=== PATIENT | female | born 1955 | race Caucasian/White ===

== ENCOUNTER → 2016-09-27 | Outpatient (CLI) | payer OTHER ==
[~2016-09-27] MED LIST: ADVIN50/60 INH; ADVIN50050 INH; ATRIN INH; CMBIN INH; DOUNEB INH; FLNIN NAE; FLUR100T PO; FLUT0.15 NAE; HYDR-3124 PO; IMIP10TA PO; IPRASOL4 INH; LANS15CA6 PO; LIDO PO; LORA-741 PO; MAALOX PO; MONT1TAB3 PO; NXM/40 PO; ONDA4TAB10 SL; POLY335040 PO; SIMV40TA2 PO; SOLI5TAB2 PO; TRAM-10 PO; URSO300C4 PO; [UNRECOGNIZED DRUG - OTHER] PO
--- NOTE | 2016-09-27 10:04 | DIAGNOSTIC IMAGING REPORT ---
RIGHT ANKLE MIN 3 VIEWS ROUTINE CLINICAL HISTORY: ACUTE RT ANKLE PAIN Right COMPARISON: None. DISCUSSION: The bones and joint spaces appear intact. There is no evidence of fracture, dislocation or bony disease. Small heel spur. IMPRESSION: Small heel spur. Otherwise negative study Electronically signed by: Liam Silva M.D. 09/27/2016 10:02 AM Dictated Date/Time: 09/27/2016 10:01 AM
== END | disposition home or self-care (01) ==
LOC: C.RAD 09:32
PROVIDERS: ATTEND Student in an Organized Health Care Education/Training Program
DX: M25.571 Pain in right ankle and joints of right foot (principal); M77.31 Calcaneal spur, right foot

== ENCOUNTER 2016-11-05 18:14 | Emergency (ER) | payer OTHER ==
[~2016-11-05] VITALS: Ht 154.9 cm; Wt 73.4 kg
[~2016-11-05 18:14] MED LIST changes: -ADVIN50/60 INH; -ATRIN INH; -FLUT0.15 NAE; -IPRASOL4 INH; -LANS15CA6 PO; -MONT1TAB3 PO; -ONDA4TAB10 SL
[2016-11-05 18:40] VITALS: Ht 154.9 cm; Wt 73.4 kg
[2016-11-05] MEDS ORDERED: SODIUM CHLORIDE 0.9% 1000ML 1,000 ML IV STA (19:06)
[2016-11-05] MEDS ORDERED: OPTIRAY 320 IV PRN (19:15)
[2016-11-05 19:18] LABS: BASO % 0.2 %; BASO ABS # 0.04 K/uL (0-0.2); COMPLETE YES; EOS % 0.7 %; HEMATOCRIT 45.2 % (37-47); IG% 0.3 %; LYMPH % 16.4 %; LYMPH ABS # 3.03 K/uL (1.2-3.4); MEAN CELL VOLUME 86.1 fL (80-100); MEAN CORPUSCULAR HEMOGLOBIN 31.2 pg (25-34); MEAN CORPUSCULAR HGB CONC 36.3 g/dl (32-36); MEAN PLATELET VOLUME 10.5 fL (7.4-10.4); MONO % 4.7 %; NEUT % 77.7 %; PLATELET COUNT 238 K/uL (130-400); RED BLOOD COUNT 5.25 M/uL (4.2-5.4); WHITE BLOOD COUNT 18.45 K/uL (4.8-10.8)
--- NOTE | 2016-11-05 19:28 | EMERGENCY ROOM VISIT NOTE ---
History Report prepared by Arun: Bobbi Coyle Under the Supervision of: Dr. Devin Pena M.D. First contact with patient: 18:49 Chief Complaint: FLU LIKE SX Stated Complaint: FLU LIKE History of Present Illness The patient is a 61 year old female who presents to the Emergency Room with complaints of a GI assessment that started yesterday. The patient states that she experienced chills yesterday, but felt well today. She is also experiencing nausea, vomiting, and diarrhea, which started today. The patient experiences bowel incontinence with vomiting. The patient has experienced two episodes of vomiting. She states that she became diaphoretic earlier today and then developed abdominal pain. The patient is also experiencing generalized weakness. The patient states that she has a history of irritable bowel syndrome. She adds that she has a hiatal hernia and an irritated esophagus. Source of History: patient Onset: yesterday Position: other (global) Quality: other (GI assessment) Timing: worsening Associated Symptoms: + abdominal pain, + chills, + diaphoresis, + diarrhea, + nausea, + vomiting Review of Systems See HPI for pertinent positives & negatives. A total of 10 systems reviewed and were otherwise negative. Past Medical & Surgical Medical Problems: (1) Asthma (2) hypertension Surgical Problems: (1) History of cholecystectomy Family History Diabetes mellitus Gallbladder disease Heart disease Hypertension Social History Smoking Status: Current Every Day Smoker Alcohol Use: none Drug Use: none Marital Status: Occupation Status: unemployed, disabled Current/Historical Medications Scheduled Flurbiprofen (Ansaid), 100 MG PO BID Fluticasone Prop/Salmeterol (Advair Diskus 500/50 60 Dose), 1 PUFF INH BID Imipramine Hcl (Tofranil), 10 MG PO HS Ipratropium Convoy (Atrovent Hfa), 2 PUFFS INH QID Ipratropium-Albuterol (Duoneb), 1 TREATMENT INH Q4H Lansoprazole (Prevacid), 15 MG PO DAILY Lorazepam (Ativan), 0.5 MG PO BID PRN Montelukast Sodium (Singulair), 10 MG PO DAILY Ondasetron Odt (Zofran Odt), 4 MG SL Q6H Simvastatin (Zocor), 40 MG PO QPM Ursodiol (Actigall), 300 MG PO BIDM [Maalox/Donnatol/Lido], 45 ML PO UD Scheduled PRN Tramadol (Ultram), 50 MG PO Q4H PRN for Pain Miscellaneous Medications Fluticasone Propionate (Nasal) (Flonase Allergy Relief), 1 SPRAY POLO Allergies Coded Allergies: Hydrocodone (Verified Allergy, Mild, vomiting, 11/05/16) Codeine (Verified Allergy, Unknown, VOMITING, 11/05/16) Physical Exam Vital Signs Date Time Temp Pulse Resp B/P Pulse Ox O2 Delivery O2 Flow Rate FiO2 11/05/16 21:37 36.6 84 13 145/87 92 11/05/16 20:44 84 13 92 11/05/16 20:39 84 20 95 11/05/16 20:34 80 20 94 11/05/16 20:31 145/87 11/05/16 20:29 85 18 93 11/05/16 20:24 84 29 94 11/05/16 20:19 85 26 95 11/05/16 20:14 94 17 97 11/05/16 20:09 85 22 96 11/05/16 20:04 84 15 94 11/05/16 20:01 137/79 11/05/16 19:59 84 13 96 11/05/16 19:57 87 11/05/16 19:40 141/88 11/05/16 19:40 81 18 141/88 96 Room Air 11/05/16 18:40 36.6 100 16 141/88 94 Room Air Physical Exam GENERAL: Patient is a healthy-appearing well-nourished female. HEAD: Normocephalic atraumatic EYES: Ocular movements intact pupils equal and react to light OROPHARYNX mucous membranes are moist no exudates present no erythema or edema present NECK: Supple no nuchal rigidity CHEST: Good equal expansion LUNGS: Clear and equal to auscultation CARDIAC: Normal S1 and S2 ABDOMEN: Soft diffuse tenderness no guarding BACK: No CVA tenderness EXTREMITIES: No pain upon palpation normal muscle strength in all groups no clubbing cyanosis or edema NEURO: Patient is following commands is answering questions appropriately. Alert and oriented x3 Cranial Nerves 2-12 grossly intact Medical Decision & Procedures ER Provider Diagnostic Interpretation: CT results as stated below per my review and radiologist interpretation: CT OF THE ABDOMEN AND PELVIS WITH CONTRAST IMPRESSION: 1. No acute process within the abdomen or pelvis. Normal appendix. 2. Suspected fatty infiltration of the liver. 3. Portions of the colon are fluid-filled which could be seen in the setting of a diarrheal state. No bowel wall thickening. No bowel obstruction. Electronically signed by: Ever Hackett M.D. 11/05/2016 9:08 PM Dictated Date/Time: 11/05/2016 9:02 PM Laboratory Results 11/05/16 19:05 Red Blood Count 5.25, Mean Corpuscular Volume 86.1, Mean Corpuscular Hemoglobin 31.2, Mean Corpuscular Hemoglobin Concent 36.3, Mean Platelet Volume 10.5, Neutrophils (%) (Auto) 77.7, Lymphocytes (%) (Auto) 16.4, Monocytes (%) (Auto) 4.7, Eosinophils (%) (Auto) 0.7, Basophils (%) (Auto) 0.2, Neutrophils # (Auto) 14.35, Lymphocytes # (Auto) 3.03, Monocytes # (Auto) 0.86, Eosinophils # (Auto) 0.12, Basophils # (Auto) 0.04 11/05/16 19:05 Test 11/05/16 19:05 11/05/16 21:30 White Blood Count 18.45 K/uL (4.8-10.8) Red Blood Count 5.25 M/uL (4.2-5.4) Hemoglobin 16.4 g/dL (12.0-16.0) Hematocrit 45.2 % (37-47) Mean Corpuscular Volume 86.1 fL (80-100) Mean Corpuscular Hemoglobin 31.2 pg (25-34) Mean Corpuscular Hemoglobin Concent 36.3 g/dl (32-36) Platelet Count 238 K/uL (130-400) Mean Platelet Volume 10.5 fL (7.4-10.4) Neutrophils (%) (Auto) 77.7 % Lymphocytes (%) (Auto) 16.4 % Monocytes (%) (Auto) 4.7 % Eosinophils (%) (Auto) 0.7 % Basophils (%) (Auto) 0.2 % Neutrophils # (Auto) 14.35 K/uL (1.4-6.5) Lymphocytes # (Auto) 3.03 K/uL (1.2-3.4) Monocytes # (Auto) 0.86 K/uL (0.11-0.59) Eosinophils # (Auto) 0.12 K/uL (0-0.5) Basophils # (Auto) 0.04 K/uL (0-0.2) RDW Standard Deviation 40.5 fL (36.4-46.3) RDW Coefficient of Variation 13.0 % (11.5-14.5) Immature Granulocyte % (Auto) 0.3 % Immature Granulocyte # (Auto) 0.05 K/uL (0.00-0.02) Anion Gap 9.0 mmol/L (3-11) Est Creatinine Clear Calc Drug Dose 60.7 ml/min Estimated GFR () 81.6 Estimated GFR (Non- 70.4 BUN/Creatinine Ratio 18.5 (10-20) Calcium Level 9.7 mg/dl (8.5-10.1) Total Bilirubin 0.5 mg/dl (0.2-1) Direct Bilirubin 0.1 mg/dl (0-0.2) Aspartate Amino Transf (AST/SGOT) 15 U/L (15-37) Alanine Aminotransferase (ALT/SGPT) 21 U/L (12-78) Alkaline Phosphatase 122 U/L (45-117) Total Creatine Kinase 85 U/L (26-192) Creatine Kinase MB 0.7 ng/ml (0.5-3.6) Creatine Kinase MB Ratio 0.8 (0-3.0) Troponin I < 0.015 ng/ml (0-0.045) Total Protein 8.1 gm/dl (6.4-8.2) Albumin 3.9 gm/dl (3.4-5.0) Lipase 222 U/L (73-393) Urine Color ORANGE Urine Appearance TURBID (CLEAR) Urine pH 5.0 (4.5-7.5) Urine Specific [place] 1.031 (1.000-1.030) Urine Protein NEG (NEG) Urine Glucose (UA) NEG (NEG) Urine Ketones NEG (NEG) Urine Occult Blood NEG (NEG) Urine Nitrite POS (NEG) Urine Bilirubin 1+ (NEG) Urine Urobilinogen NEG (NEG) Urine Leukocyte Esterase NEG (NEG) Urine WBC (Auto) 1-5 /hpf (0-5) Urine RBC (Auto) 5-10 /hpf (0-4) Urine Hyaline Casts (Auto) 5-10 /lpf (0-5) Urine Epithelial Cells (Auto) >30 /lpf (0-5) Urine Bacteria (Auto) NEG (NEG) Date/Time Source Procedure Growth Status 11/05/16 21:30 Stool C.difficile Toxin B Gene (PCR) - Final No C. difficile toxin B gene detected Complete Labs reviewed by ED physician. Medications Administered Medications (Trade) Dose Ordered Sig/Bakari Route Start Time Stop Time Status Last Admin Dose Admin Sodium Chloride (Nss 1000ml) 1,000 ml @ 999 mls/hr Q1H1M STAT IV 11/05/16 19:06 11/05/16 20:06 DC 11/05/16 19:38 999 MLS/HR ECG Indication: abdominal pain Rate (beats per minute): 83 Rhythm: normal sinus Findings: no acute ischemic change, no ectopy ED Course 1851: Past medical records reviewed. The patient was evaluated in room C2. A complete history and physical examination was performed. 1905: Ordered Sodium Chloride 1000 ml @ 999 mls/hr IV 2114: Upon reexamination the patient is doing well. I discussed results and treatment plan with the patient. She verbalizes agreement and understanding. The patient is ready for discharge. Ordered Ondansetron HCl 1 homepack Medical Decision Differential diagnosis: Etiologies such as appendicitis, diverticulitis, PUD, biliary pathology, UTI, pancreatitis, obstruction, mesenteric ischemia, aortic pathology, infections, inflammatory bowel disease, renal colic, as well as others were entertained. This is a 61-year-old female who presents emergency department complaining of nausea vomiting diarrhea. Serial abdominal examinations were performed on the patient in the emergency department and no tended she exhibit a surgical abdomen. The patient was given normal saline bolus with much improvement in her symptoms. She was able provide a stool sample this was sent for culture. I do believe the patient as well as she can be safely discharged home. Patient was given Zofran for home and will be called and culture results. Patient was in agreement with the treatment plan. Impression Primary Impression: Gastroenteritis Scribe Attestation The scribe's documentation has been prepared under my direction and personally reviewed by me in its entirety. I confirm that the note above accurately reflects all work, treatment, procedures, and medical decision making performed by me. Departure Information Dispostion Home / Self-Care Prescriptions Ondasetron Odt (ZOFRAN ODT) 4 Mg Tab 4 MG SL Q6H for Nausea, #6 TAB Prov: Devin Pena MD 11/05/16 Referrals Smitha Ocasio D.O. (PCP) Forms HOME CARE DOCUMENTATION FORM, IMPORTANT VISIT INFORMATION Patient Instructions ED Diet Vomiting Diarrhea, ED Gastroenteritis Report Pend, My [facility] Additional Instructions You received narcotic or benzodiazepene medication while in the emergency room today. Do not drive, operate heavy machinery, or drink alcohol under the influence of this medication. Take 600 mg Ibuprofen every 6 hours Culture results are usually available in approx 48 hours You have been examined and treated today on an emergency basis only. This is not a substitute for, or an effort to provide, complete comprehensive medical care. It is impossible to recognize and treat all injuries or illnesses in a single emergency department visit. It is therefore important that you follow up closely with Dr Ocasio. Call as soon as possible for an appointment. Thank you for your time and consideration. I look forward to speaking with you again soon. Please don't hesitate to call us if you have any questions.
[2016-11-05 19:36] LABS: ALT/SGPT 21 U/L (12-78); BLOOD UREA NITROGEN 16 mg/dl (7-18); BUN/CREATININE RATIO 18.5 (10-20); CALCIUM 9.7 mg/dl (8.5-10.1); CARBON DIOXIDE 29 mmol/L (21-32); CHLORIDE 103 mmol/L (98-107); CREATININE 0.88 mg/dl (0.60-1.20); GLUCOSE 97 mg/dl (70-99); POTASSIUM 3.7 mmol/L (3.5-5.1); SODIUM 141 mmol/L (136-145)
[2016-11-05 19:41] LABS: ALKALINE PHOSPHATASE 122 U/L (45-117); AST/SGOT 15 U/L (15-37); CKMB/CK RATIO 0.8 (0-3.0)
[2016-11-05] MEDS ORDERED: ATRIN INH (20:20)
[2016-11-05] MEDS ORDERED: IPRASOL4 INH (20:20)
[2016-11-05] MEDS ORDERED: ADVIN50/60 INH (20:20)
[2016-11-05] MEDS ORDERED: LANS15CA6 PO (20:20)
[2016-11-05] MEDS ORDERED: MONT1TAB3 PO (20:20)
[2016-11-05] MEDS ORDERED: FLUT0.15 NAE (20:20)
--- NOTE | 2016-11-05 21:09 | DIAGNOSTIC IMAGING REPORT ---
CT OF THE ABDOMEN AND PELVIS WITH CONTRAST CLINICAL HISTORY: Diffuse abdominal pain. COMPARISON STUDY: Right upper quadrant ultrasound August 29, 2012. TECHNIQUE: Following IV administration of 92 mL of Optiray-320, axial images of the abdomen and pelvis were obtained from the lung bases to the proximal femurs. Images were reviewed in the axial, sagittal, and coronal planes. IV contrast was administered without complication. CT DOSE: 452.34 mGy.cm FINDINGS: There is no biliary ductal dilatation status post cholecystectomy. There is suspected fatty infiltration of the liver. The adrenal glands, spleen, kidneys and pancreas are normal. There is no peripancreatic infiltration. No pneumatosis, free air or portal venous gas is present. There is no hydronephrosis. The caliber and wall thickness of small and large bowel are normal. The colon is fluid-filled. The appendix is normal. There is no lymphadenopathy. There are no suspicious skeletal lesions. IMPRESSION: 1. No acute process within the abdomen or pelvis. Normal appendix. 2. Suspected fatty infiltration of the liver. 3. Portions of the colon are fluid-filled which could be seen in the setting of a diarrheal state. No bowel wall thickening. No bowel obstruction. Electronically signed by: Ever Hackett M.D. 11/05/2016 9:08 PM Dictated Date/Time: 11/05/2016 9:02 PM
[2016-11-05] MEDS ORDERED: ONDANSETRON HOME PACK 4MG OD TAB PO ONE (21:15)
[2016-11-05] MEDS ORDERED: ONDA4TAB10 SL (21:18)
[2016-11-05 21:37] VITALS: BP 145/87; PULSE 84; TEMP 36.6; O2SAT 92
[2016-11-05 21:49] LABS: URINE APPEARANCE TURBID (CLEAR); URINE COLOR ORANGE; URINE EPITHELIAL CELL AUTO >30 /lpf (0-5); URINE NITRITE POS (NEG); URINE SPECIFIC GRAVITY 1.031 (1.000-1.030); UROBILINOGEN NEG (NEG)
[2016-11-05 21:51] LABS: MANUAL MICROSCOPIC REQUIRED? NO; REVIEW REQ? NO; SULFASALICYLIC ACID NEG (NEG); URINE BILIRUBIN 1+ (NEG)
== END 2016-11-05 21:38 | disposition home or self-care (01) ==
LOC: C.EDB 18:14 → C.EDC 21:38
DX: K52.9 Noninfective gastroenteritis and colitis, unspecified (principal); J45.909 Unspecified asthma, uncomplicated; I10 Essential (primary) hypertension; Z90.49 Acquired absence of other specified parts of digestive tract; Z83.3 Family history of diabetes mellitus; Z82.49 Family history of ischemic heart disease and other diseases of the circulatory system; F17.210 Nicotine dependence, cigarettes, uncomplicated; Z79.899 Other long term (current) drug therapy

== ENCOUNTER → 2017-06-04 | Outpatient (CLI) | payer OTHER ==
[~2017-06-04] MED LIST changes: +ADVIN50/60 INH; -ADVIN50050 INH; +ATRIN INH; -CMBIN INH; -DOUNEB INH; -FLNIN NAE; +FLUT0.15 NAE; -HYDR-3124 PO; +IPRASOL4 INH; +LANS15CA6 PO; +MONT1TAB3 PO; -NXM/40 PO; -POLY335040 PO; -SOLI5TAB2 PO
--- NOTE | 2017-06-04 08:52 | DIAGNOSTIC IMAGING REPORT ---
(CHEST) THORAX WITHOUT CLINICAL HISTORY: 61 years-old Female presenting with J44.9 Chronic obstructive pulmonary [id number] Pulmonary nodule. TECHNIQUE: Multidetector CT imaging of the chest was performed without the use of intravenous contrast. IV contrast: None. A dose lowering technique was used consistent with the principles of ALARA (as low as reasonably achievable). COMPARISON: 05/21/2016. CT DOSE (mGy.cm): The estimated cumulative dose is 316.81 mGycm. FINDINGS: Marine Extension Agent topogram: Unremarkable. On soft tissue windows, normal thyroid and thoracic inlet. No axillary, supraclavicular, hilar, or mediastinal lymphadenopathy. Atherosclerosis of the aorta. Coronary artery calcification at the origin of the right main coronary artery. Normal heart size. No pericardial or pleural effusion. Cholecystectomy clips noted. On lung windows, multiple tiny groundglass nodules noted in the upper lobes and superior segments of the lower lobes in a similar distribution as on prior exam. No new pulmonary nodule. No other focal infiltrate. Airways patent. On bone windows, normal osseous structures. IMPRESSION: 1. Stable tiny upper lobe predominant groundglass nodules. This appearance is most characteristic of respiratory bronchiolitis/smoking related lung injury in the appropriate clinical setting. No new pulmonary nodule. Electronically signed by: Jose Angel Queen M.D. 06/04/2017 8:50 AM Dictated Date/Time: 06/04/2017 8:46 AM
== END | disposition home or self-care (01) ==
LOC: C.CTS 08:37
PROVIDERS: ATTEND Internal Medicine Critical Care Medicine
DX: J44.9 Chronic obstructive pulmonary disease, unspecified (principal); R91.8 Other nonspecific abnormal finding of lung field; Z72.0 Tobacco use

== ENCOUNTER 2020-05-13 13:27 | Inpatient (IN) ==
--- NOTE | 2020-05-13 13:52 | Emergency Department Note ---
ED Visit Note I have seen and examined this patient with Belinda Girard and generally agree with the treatment plan as discussed. .
[2020-05-13] MEDS ORDERED: SODIUM CHLORIDE 0.9% 1000ML 1,000 ML IV ONE (13:54)
[2020-05-13] MEDS ORDERED: TRAMADOL HCL 50 MG TABLET PO STA (13:55)
[2020-05-13] MEDS ORDERED: ONDANSETRON INJ 2 MG/ML 2 ML VIAL IV STA (13:55)
--- NOTE | 2020-05-13 14:19 | Emergency Department Note ---
History of Present Illness General Chief complaint: Skin Problem Stated complaint: ABSCESS IN GROIN AREA,PAIN MUCH WORSE TODAY Time Seen by Provider: 05/13/20 13:37 History of Present Illness Maximum Pain Intensity: 10 This patient is a 64-year-old female who presents emergency department complaining of increased redness, swelling and pain in the groin area that has gotten progressively worse over the last 5 days. The pain is worse with walking. She has tried Tylenol with minimal relief. The patient saw her beverage host yesterday. The area was lanced. Tetanus shot is up-to-date. She denies any fever. No chills. No urinary symptoms. Home Medications Home Medications Medication Instructions Recorded Confirmed Type atorvastatin 40 mg PO QAM 07/23/18 05/13/20 History diclofenac sodium 75 mg PO BIDM 07/23/18 05/13/20 History montelukast 10 mg PO QAM 07/23/18 05/13/20 History pantoprazole [Protonix] 40 mg PO QAM 07/23/18 05/13/20 History fluticasone furoate-vilanterol 1 inh INHALATION QAM 03/29/19 05/13/20 History [Breo Ellipta] albuterol sulfate [Ventolin HFA] 2 inh INHALATION Q4H PRN 05/13/20 05/13/20 History cetirizine 5 mg PO HS 05/13/20 05/13/20 History escitalopram oxalate [Lexapro] 10 mg PO QAM 05/13/20 05/13/20 History famotidine [Pepcid] 20 mg PO HS PRN 05/13/20 05/13/20 History fluticasone furoate [Arnuity 1 inh INHALATION HS 05/13/20 05/13/20 History Ellipta] fluticasone propionate [Flonase 2 spray INTRANASAL BID 05/13/20 05/13/20 History Allergy Relief] guaifenesin [Mucinex] 1,200 mg PO BID PRN 05/13/20 05/13/20 History hydrocortisone [Proctosol HC] 1 applic [place] BID PRN 05/13/20 05/13/20 History ipratropium-albuterol 3 ml INHALATION Q4H PRN 05/13/20 05/13/20 History mirabegron [Myrbetriq] 50 mg PO QAM 05/13/20 05/13/20 History sulfamethoxazole-trimethoprim 1 tab PO BID 05/13/20 05/13/20 History [Bactrim DS] umeclidinium [Incruse Ellipta] 1 inh INHALATION QAM 05/13/20 05/13/20 History Allergies Allergy/AdvReac Type Severity Reaction Status Date / Time codeine AdvReac Severe VOMITING Verified 05/13/20 16:23 doxycycline AdvReac Severe Nausea & Verified 05/13/20 16:23 vomiting morphine AdvReac Severe Vomiting Verified 05/13/20 16:23 dicyclomine AdvReac Intermediate N/V Verified 05/13/20 16:23 hydrocodone AdvReac Mild vomiting Verified 05/13/20 16:23 nitrofurantoin AdvReac Unknown Vomiting Verified 05/13/20 16:23 [From Macrobid] Past Med/Surg History Medical History Asthma Chronic back pain Chronic obstructive pulmonary disease Degenerative disc disease GERD (gastroesophageal reflux disease) Hiatal hernia History of corrected cleft lip and palate Hyperlipidemia Osteoarthritis Surgical History H/O tympanomastoidectomy RIGHT EAR History of carpal tunnel release RIGHT History of cataract extraction with lens replacement RIGHT EYE, JUL 2018 History of colonoscopy History of ear surgery RIGHT -- MULTIPLE SURGERIES History of hysterectomy RINKU WITH BSO Social History Smoking Status: Current every day smoker Cigarettes Per Day: 11 PER DAY; Second Hand Exposure: Yes; Do You Dip or Chew Tobacco: No; Tobacco Cessation Education Requested by Patient: No Hx Alcohol Use: No Hx Substance Use: No Preferred Language: Tamazight Communication Ability: Effective Quantitative Strategy Analyst Required: No Beliefs That Will Affect Care: None Current Living Situation: Family Other Information That Helps Us Care for You: No Feels Safe at Home: Yes Safety Concerns: Feels Safe At This Time Review of Systems A total of 10 systems reviewed and were otherwise negative Physical Exam Vital Signs Vital Signs - 24 hr 05/13/20 13:30 05/13/20 14:25 Temperature 36.7 C Temperature Source Oral Pulse Rate 87 Pulse Rate [Finger] 91 H Respiratory Rate 20 20 Respiratory Effort / Characteristics Non-Labored Spontaneous Non-Labored Spontaneous Respiratory Depth Normal Normal Respiratory Pattern Regular Blood Pressure 127/79 Blood Pressure [Right Arm] 162/80 H Blood Pressure Mean 95 Blood Pressure Mean [Right Arm] 107 Pulse Oximetry 96 95 Oxygen Delivery Method Room Air Room Air Sepsis Recent Fever Within 48 Hours No Sepsis New/Unexplained Change in Mental Status N/A Sepsis Action Taken by Nursing No Action Required Constitutional WD/WN, vitals as above Eyes EOM intact bilaterally ENMT external ear and nose normal, oropharynx normal Neck trachea midline Respiratory normal respiratory effort, lungs clear to auscultation Cardiovascular RRR, no murmur, no edema Gastrointestinal (Abdomen) normal bowel sounds, soft, nontender, no hepatosplenomegaly Musculoskeletal no cyanosis or clubbing, extremities motor strength 5/5 Skin no rashes, warm and dry Neurologic Alert and oriented x3. No focal motor deficits. Psychiatric Acting appropriately Genitourinary Significant erythema and indurated area noted to the right labia majora. Course Course Patient was seen and examined Vital signs including blood pressure were reviewed medications list was verified with patient Labs were obtained, and a saline lock was established Medications were ordered. Case was discussed with gynecology who kindly agreed to evaluate the patient for likely inpatient management The patient was reevaluated. We discussed the results. She voiced understanding, and was comfortable with disposition. She remained stable in the emergency department. Consultations Consultation #1: Dr. Rodriguez Administered Medications Acetaminophen (Acetaminophen 325 Mg Tab) 650 mg PO Q4H PRN PRN Reason: Pain or Fever Stop: 06/12/20 16:30 Last Admin: 05/13/20 18:25 Dose: 650 mg Documented by: [id number] Cetirizine HCl (Cetirizine Hcl 10 Mg Tablet) 5 mg PO HS EILEEN Stop: 06/12/20 20:59 Last Admin: 05/13/20 20:20 Dose: 5 mg Documented by: [id number] Diclofenac Sodium (Diclofenac Sodium 75 Mg Tabcr) 75 mg PO BIDM EILEEN Stop: 06/12/20 18:08 Last Admin: 05/13/20 20:20 Dose: 75 mg Documented by: [id number] Fluticasone Furoate (Fluticasone Furoate 100mcg 14 Puffs/Inhaler) 1 puffs INH HS EILEEN Stop: 06/12/20 20:59 Last Admin: 05/13/20 20:19 Dose: 1 puffs Documented by: [id number] Fluticasone Propionate (Fluticasone Propionate Na Spr 16 Gm Btl) 2 sprays NA BID EILEEN Stop: 06/12/20 20:59 Last Admin: 05/13/20 20:19 Dose: 2 sprays Documented by: [id number] Discontinued Medications Sodium Chloride (Nss 1000ml) 1,000 mls @ 999 mls/hr IV .Q1H1M ONE Stop: 05/13/20 14:54 Last Infusion: 05/13/20 16:00 Dose: 0 mls/hr Documented by: [id number] Admin: 05/13/20 14:37 Dose: 999 mls/hr Documented by: [id number] Vancomycin HCl 1,500 mg/ (Sodium Chloride) 530 mls @ 200 mls/hr IV NOW ONE Stop: 05/13/20 19:08 Last Admin: 05/13/20 17:00 Dose: 200 mls/hr Documented by: [id number] Metronidazole (Flagyl) 500 mg in 100 mls @ 100 mls/hr IV ONE ONE Stop: 05/13/20 18:14 Last Admin: 05/13/20 20:17 Dose: 100 mls/hr Documented by: [id number] Ceftriaxone Sodium (Rocephin) 2,000 mg in 70 mls @ 140 mls/hr IV NOW ONE; Pro tocol Stop: 05/13/20 20:14 Last Admin: 05/13/20 20:17 Dose: 140 mls/hr Documented by: [id number] Ioversol (Ioversol 100ml) 94 ml IV ONCE ONE Stop: 05/13/20 15:28 Last Admin: 05/13/20 15:27 Dose: 94 ml Documented by: [id number] Ondansetron HCl (Ondansetron Inj 2 Mg/Ml 2 Ml Vial) 4 mg IV NOW STA Stop: 05/13/20 13:56 Last Admin: 05/13/20 14:37 Dose: 4 mg Documented by: [id number] Tramadol HCl (Tramadol Hcl 50 Mg Tablet) 50 mg PO NOW STA Stop: 05/13/20 13:56 Last Admin: 05/13/20 14:37 Dose: 50 mg Documented by: [id number] Medical Decision Making Medical Records Attestation: I reviewed the patient's medical records. Home Medications Current Medication List: was personally reviewed by me Laboratory Data Attestation: I reviewed the patient's lab results. Result diagrams: 05/13/20 14:33 05/13/20 14:33 Lab Results 05/13/20 05/13/20 05/13/20 Range/Units 14:30 14:33 14:33 WBC 16.91 H (4.8-10.8) K/uL RBC 4.60 (4.2-5.4) M/uL Hgb 14.1 (12.0-16.0) g/dL Hct 40.3 (37-47) % MCV 87.6 (80-100) fL MCH 30.7 (25-34) pg MCHC 35.0 (32-36) g/dL RDW Std Deviation 40.6 (36.4-46.3) fL RDW Coeff of Raheem 12.6 (11.5-14.5) % Plt Count 187 (130-400) K/uL MPV 10.9 H (7.4-10.4) fL Immature Gran % (Auto) 0.2 % Neut % (Auto) 81.6 % Lymph % (Auto) 10.8 % [place] % (Auto) 7.0 % Eos % (Auto) 0.3 % Baso % (Auto) 0.1 % Neut # (Auto) 13.81 H (1.4-6.5) K/uL Lymph # (Auto) 1.82 (1.2-3.4) K/uL Independence # (Auto) 1.18 H (0.11-0.59) K/uL Eos # (Auto) 0.05 (0-0.5) K/uL Baso # (Auto) 0.01 (0-0.2) K/uL Immature Gran # (Auto) 0.04 H (0.00-0.02) K/uL PT (9.0-12.0) Seconds INR (0.9-1.1) Sodium (136-145) mmol/L Potassium (3.5-5.1) mmol/L Chloride (98-107) mmol/L Carbon Dioxide (21-32) mmol/L Anion Gap (3-11) BUN (7-18) mg/dl Creatinine (0.6-1.2) mg/dl Est Cr Clr Drug Dosing Est GFR ( Amer) Est GFR (Non-Af Amer) BUN/Creatinine Ratio (10-20) Glucose (70-99) mg/dl Lactate 1.1 (0.4-2.0) mmol/L Calcium (8.5-10.1) mg/dl Total Bilirubin (0.2-1) mg/dl AST (15-37) U/L ALT (12-78) U/L Alkaline Phosphatase (45-117) U/L Total Protein (6.4-8.2) gm/dl Albumin (3.4-5.0) gm/dl Globulin (2.5-4.0) gm/dl Albumin/Globulin Ratio (0.9-2) Urine Color Dark Yellow Urine Appearance Clear (Clear) Urine pH 5.5 (4.5-7.5) Ur Specific [place] 1.022 (1.000-1.030) Urine Protein Negative (Negative) Urine Glucose (UA) Negative (Negative) Urine Ketones Negative (Negative) Urine Blood Negative (Negative) Urine Nitrite Negative (Negative) Urine Bilirubin Negative (Negative) Urine Urobilinogen Negative (Negative) Ur Leukocyte Esterase Trace H (Negative) Urine WBC (Auto) 1-5 (0-5) /hpf Urine RBC (Auto) 0-4 (0-4) /hpf U Hyaline Cast (Auto) 1-5 (0-5) /lpf U Epithel Cells (Auto) >30 H (0-5) /lpf Urine Bacteria (Auto) Negative (Negative) 05/13/20 05/13/20 Range/Units 14:33 14:33 WBC (4.8-10.8) K/uL RBC (4.2-5.4) M/uL Hgb (12.0-16.0) g/dL Hct (37-47) % MCV (80-100) fL MCH (25-34) pg MCHC (32-36) g/dL RDW Std Deviation (36.4-46.3) fL RDW Coeff of Raheem (11.5-14.5) % Plt Count (130-400) K/uL MPV (7.4-10.4) fL Immature Gran % (Auto) % Neut % (Auto) % Lymph % (Auto) % Independence % (Auto) % Eos % (Auto) % Baso % (Auto) % Neut # (Auto) (1.4-6.5) K/uL Lymph # (Auto) (1.2-3.4) K/uL Independence # (Auto) (0.11-0.59) K/uL Eos # (Auto) (0-0.5) K/uL Baso # (Auto) (0-0.2) K/uL Immature Gran # (Auto) (0.00-0.02) K/uL PT 11.5 (9.0-12.0) Seconds INR 1.1 (0.9-1.1) Sodium 138 (136-145) mmol/L Potassium 3.3 L (3.5-5.1) mmol/L Chloride 103 (98-107) mmol/L Carbon Dioxide 27 (21-32) mmol/L Anion Gap 8.0 (3-11) BUN 17 (7-18) mg/dl Creatinine 1.09 (0.6-1.2) mg/dl Est Cr Clr Drug Dosing Not Reportable Est GFR ( Amer) 61.7 Est GFR (Non-Af Amer) 53.2 BUN/Creatinine Ratio 15.2 (10-20) Glucose 100 H (70-99) mg/dl Lactate (0.4-2.0) mmol/L Calcium 9.9 (8.5-10.1) mg/dl Total Bilirubin 1.7 H (0.2-1) mg/dl AST 9 L (15-37) U/L ALT 16 (12-78) U/L Alkaline Phosphatase 125 H (45-117) U/L Total Protein 7.7 (6.4-8.2) gm/dl Albumin 3.3 L (3.4-5.0) gm/dl Globulin 4.4 H (2.5-4.0) gm/dl Albumin/Globulin Ratio 0.7 L (0.9-2) Urine Color Urine Appearance (Clear) Urine pH (4.5-7.5) Ur Specific [place] (1.000-1.030) Urine Protein (Negative) Urine Glucose (UA) (Negative) Urine Ketones (Negative) Urine Blood (Negative) Urine Nitrite (Negative) Urine Bilirubin (Negative) Urine Urobilinogen (Negative) Ur Leukocyte Esterase (Negative) Urine WBC (Auto) (0-5) /hpf Urine RBC (Auto) (0-4) /hpf U Hyaline Cast (Auto) (0-5) /lpf U Epithel Cells (Auto) (0-5) /lpf Urine Bacteria (Auto) (Negative) Imaging Data Attestation: I personally reviewed and interpreted this imaging study as follows: Radiologist's Impression: CT abdomen and pelvis with IV contrast only IMPRESSION: 1. Moderate anterior right labial inflammation extending into the right groin, partially imaged on this exam. No fluid collection to suggest abscess. This suggests cellulitis. No soft tissue gas. 2. Mild asymmetric right inguinal and external iliac adenopathy which is reactive. 3. 1 cm hypodense left renal lesion which is too small to characterize. Nonemergent renal ultrasound is recommended. ACT 112: Negative or not required by law. Electronically signed by: Ever Hackett M.D. 05/13/2020 3:45 PM Dictated: 05/13/20 1536 Transcribed: 05/13/20 1540 [facility] Narrative Differential diagnosis: Cellulitis, abscess, Denys's gangrene, intra-abdomi nal abscess, among others This patient is a 64-year-old female who presents emergency department with increased redness, swelling and pain in the right labial area. On exam, she was nontoxic in appearance. She does however have a significant cellulitis. I cannot palpate a drainable abscess. A work-up was performed. The patient's blood work is significant for leukocytosis of 16,000. A CT was performed. No drainable abscess was noted. No signs of Denys's gangrene. It is consistent with cellulitis. Given the extent of her symptoms, gynecology was consulted. They kindly agreed to evaluate the patient, and will likely admit her for IV antibiotics. The patient was agreeable with this plan. Impression & Plan Cellulitis of labia Discharge Plan Visit Data Chief Complaint: Skin Problem Stated Complaint: ABSCESS IN GROIN AREA,PAIN MUCH WORSE TODAY ED Provider: Devin Pena ED Midlevel Provider: Belinda Girard Discharge Problem: Cellulitis of labia Patient Disposition: Admitted As Inpatient Condition: Good Discharge Instructions Interventions: ED Discharge Assessment Last Done: 05/13/20 17:15
[2020-05-13 14:49] LABS: Basophils # (auto) 0.01 K/uL (0-0.2); Basophils % (auto) 0.1 %; Eosinophils # (auto) 0.05 K/uL (0-0.5); Eosinophils % (auto) 0.3 %; Hematocrit (blood only) 40.3 % (37-47); Hemoglobin 14.1 g/dL (12.0-16.0); Immature Granulocytes # (auto) 0.04 K/uL (0.00-0.02); Immature Granulocytes % (auto) 0.2 %; Lymphocytes # (auto) 1.82 K/uL (1.2-3.4); Lymphocytes % (auto) 10.8 %; Mean Corpuscular Hemoglobin 30.7 pg (25-34); Mean Corpuscular Volume 87.6 fL (80-100); Mean Platelet Volume 10.9 fL (7.4-10.4); Monocytes # (auto) 1.18 K/uL (0.11-0.59); Neutrophils # (auto) 13.81 K/uL (1.4-6.5); Neutrophils % (auto) 81.6 %; Platelet Count 187 K/uL (130-400); RDW Coefficient of Variation 12.6 % (11.5-14.5); RDW Standard Deviation 40.6 fL (36.4-46.3); White Blood Count 16.91 K/uL (4.8-10.8)
[2020-05-13 14:57] LABS: INR 1.1 (0.9-1.1); Prothrombin Time 11.5 Seconds (9.0-12.0)
[2020-05-13 14:57] LABS: Appearance Urine Clear (Clear); Bacteria Urine Automated Negative (Negative); Blood Urine Negative (Negative); Color Urine Dark Yellow; Epithelial Cell Urine Auto >30 /lpf (0-5); Glucose Urine UA Negative (Negative); Ketones Urine Negative (Negative); Leukocyte Esterase Urine Trace (Negative); Nitrite Urine Negative (Negative); Protein Urine Negative (Negative); RBC Urine Automated 0-4 /hpf (0-4); Specific Gravity Urine 1.022 (1.000-1.030); Urobilinogen Urine Negative (Negative); pH Urine 5.5 (4.5-7.5)
[2020-05-13 15:09] LABS: Bilirubin Urine Negative (Negative); Ictotest Urine Negative (Negative)
[2020-05-13 15:10] LABS: Alanine Aminotransferase 16 U/L (12-78); Albumin Level 3.3 gm/dl (3.4-5.0); Aspartate Aminotransferase 9 U/L (15-37); BUN Creatinine Ratio 15.2 (10-20); Blood Urea Nitrogen 17 mg/dl (7-18); Calcium 9.9 mg/dl (8.5-10.1); Carbon Dioxide 27 mmol/L (21-32); Chloride 103 mmol/L (98-107); Est GFR (African American) 61.7; Est GFR (Non-African American) 53.2; Glucose 100 mg/dl (70-99); Potassium 3.3 mmol/L (3.5-5.1); Sodium 138 mmol/L (136-145)
[2020-05-13 15:13] LABS: Albumin Globulin Ratio 0.7 (0.9-2); Alkaline Phosphatase 125 U/L (45-117); Bilirubin,Total 1.7 mg/dl (0.2-1); Globulin 4.4 gm/dl (2.5-4.0); Total Protein 7.7 gm/dl (6.4-8.2)
[2020-05-13] MEDS ORDERED: IOVERSOL 100ml IV ONE (15:27)
--- NOTE | 2020-05-13 15:46 | CT Scan Report ---
CT OF THE ABDOMEN AND PELVIS WITH CONTRAST CLINICAL HISTORY: Labial abscess. COMPARISON STUDY: CT of the abdomen and pelvis November 05, 2016. Pelvic ultrasound September 16, 2018. TECHNIQUE: Following IV administration of 94 mL of Optiray-320, axial images of the abdomen and pelvi s were obtained from the lung bases to the proximal femurs. Images were reviewed in the axial, sagitt al, and coronal planes. IV contrast was administered without complication. Automated exposure contro l was utilized for the study. A dose lowering technique was utilized adhering to the principles of A DORON. CT DOSE: 498.35 mGy.cm FINDINGS: Lung bases are unremarkable. No pneumatosis, free air or portal venous gas is present. Slig ht dilatation of the common bile duct is likely related to previous cholecystectomy. The spleen, adre nal glands and pancreas are unremarkable. There is a probable 2 mm nonobstructing left renal calculus . There are no ureteral calculi. No hydronephrosis. Note is made of a 1 cm lesion within the midpole of the left kidney on axial image 178 of 421. This is too small to characterize. There is no evidence for a bowel obstruction. The appendix is normal. Note is made of moderate anterior right labial infl ammation extending into the right groin. This is partially imaged on this exam and no fluid collectio n is noted. No soft tissue gas is noted. Mild asymmetric right inguinal and iliac adenopathy is likel y reactive. Index right external iliac node on image 353 measures 1.5 x 1.2 cm. IMPRESSION: 1. Moderate anterior right labial inflammation extending into the right groin, partially imaged on th is exam. No fluid collection to suggest abscess. This suggests cellulitis. No soft tissue gas. 2. Mild asymmetric right inguinal and external iliac adenopathy which is reactive. 3. 1 cm hypodense left renal lesion which is too small to characterize. Nonemergent renal ultrasound is recommended. ACT 112: Negative or not required by law. Electronically signed by: Ever Hackett M.D. 05/13/2020 3:45 PM
[2020-05-13] MEDS ORDERED: VANCOMYCIN HCL 1,500 MG in SODIUM CHLORIDE 0.9% 500 ML IV ONE (16:30)
[2020-05-13] MEDS ORDERED: POLYETHYLENE (MIRALAX) 17 GM PACK PO PRN (16:31)
[2020-05-13] MEDS ORDERED: ALUMINUM/MAGNESIUM/SIMETH (MAALOX MAX) 30 ML UDC PO PRN (16:31)
[2020-05-13] MEDS ORDERED: ONDANSETRON INJ 2 MG/ML 2 ML VIAL IV PRN (16:31)
[2020-05-13] MEDS ORDERED: SULFA IV SCH ×2 (16:35→17:00)
[2020-05-13] MEDS ORDERED: DILUENT IV SCH (16:35)
[2020-05-13] MEDS ORDERED: TRIMETH IV SCH ×2 (16:35→17:00)
--- NOTE | 2020-05-13 16:42 | OB/GYN Consultation ---
Date of Consultation May 13, 2020 Assessment & Plan (1) Abscess, vulva: (2) Vulvar cellulitis: 64 yo postmenopausal female with vulvar cellulitis, no s/s of abscess per CT scan, got worse since yesterday, unable to tolerate PO AB VSS Afebrile Plan to admit, monitor, IV AB, Vanco and Bactrim for 48 hours She agrees History of Present Illness Reason for Consultation: Vulvar abcsess History of Present Illness Patient is a 64 yo postmenopausal female who started to have vulvar swelling and pain for bout 5 days ago, got worse over days and came to see her PCP yesterday in office Then she was sent up to my office from her PCP I saw here yesterday am and found to have vulvar edema/ redness/ induration c/x vulvar cellulitis vs abscess Tried I&D but unable to tolerate and did not drain much C were collected US was arranged same day but she could not stay and went home She took 1 dose of Bactrim and had N&V and unable to continue It got bigger and worse today and recommended to come to ER She is now with her daughter who is a OWNER/PHOTOGRAPHER CT scan showed here: 1. Moderate anterior right labial inflammation extending into the right groin, partially imaged on this exam. No fluid collection to suggest abscess. This suggests cellulitis. No soft tissue gas. 2. Mild asymmetric right inguinal and external iliac adenopathy which is reactive Allergies Allergy/AdvReac Type Severity Reaction Status Date / Time codeine AdvReac Severe VOMITING Verified 05/13/20 16:23 doxycycline AdvReac Severe Nausea & Verified 05/13/20 16:23 vomiting morphine AdvReac Severe Vomiting Verified 05/13/20 16:23 dicyclomine AdvReac Intermediate N/V Verified 05/13/20 16:23 hydrocodone AdvReac Mild vomiting Verified 05/13/20 16:23 nitrofurantoin AdvReac Unknown Vomiting Verified 05/13/20 16:23 [From Macrobid] Home Medications Home Medications Medication Instructions Recorded Confirmed Type atorvastatin 40 mg PO QAM 07/23/18 05/13/20 History diclofenac sodium 75 mg PO BIDM 07/23/18 05/13/20 History montelukast 10 mg PO QAM 07/23/18 05/13/20 History pantoprazole [Protonix] 40 mg PO QAM 07/23/18 05/13/20 History fluticasone furoate-vilanterol 1 inh INHALATION QAM 03/29/19 05/13/20 History [Breo Ellipta] albuterol sulfate [Ventolin HFA] 2 inh INHALATION Q4H PRN 05/13/20 05/13/20 History cetirizine 5 mg PO HS 05/13/20 05/13/20 History escitalopram oxalate [Lexapro] 10 mg PO QAM 05/13/20 05/13/20 History famotidine [Pepcid] 20 mg PO HS PRN 05/13/20 05/13/20 History fluticasone furoate [Arnuity 1 inh INHALATION HS 05/13/20 05/13/20 History Ellipta] fluticasone propionate [Flonase 2 spray INTRANASAL BID 05/13/20 05/13/20 History Allergy Relief] guaifenesin [Mucinex] 1,200 mg PO BID PRN 05/13/20 05/13/20 History hydrocortisone [Proctosol HC] 1 applic [place] BID PRN 05/13/20 05/13/20 History ipratropium-albuterol 3 ml INHALATION Q4H PRN 05/13/20 05/13/20 History mirabegron [Myrbetriq] 50 mg PO QAM 05/13/20 05/13/20 History sulfamethoxazole-trimethoprim 1 tab PO BID 05/13/20 05/13/20 History [Bactrim DS] umeclidinium [Incruse Ellipta] 1 inh INHALATION QAM 05/13/20 05/13/20 History Patient History Medical History Asthma Chronic back pain Chronic obstructive pulmonary disease Degenerative disc disease GERD (gastroesophageal reflux disease) Hiatal hernia History of corrected cleft lip and palate Hyperlipidemia Osteoarthritis Surgical History H/O tympanomastoidectomy RIGHT EAR History of carpal tunnel release RIGHT History of cataract extraction with lens replacement RIGHT EYE, JUL 2018 History of colonoscopy History of ear surgery RIGHT -- MULTIPLE SURGERIES History of hysterectomy RINKU WITH BSO Social History Smoking Status: Current every day smoker Cigarettes Per Day: 11 PER DAY; Second Hand Exposure: Yes; Hx Alcohol Use: No Hx Substance Use: No Preferred Language: Setswana Communication Ability: Effective Retail Coverage Merchandiser Lead Required: No Beliefs That Will Affect Care: None Current Living Situation: Family Feels Safe at Home: Yes Review of Systems Review of Systems: All systems reviewed & are unremarkable except as noted in HPI & below Physical Exam Constitutional: WD/WN, vitals as above well developed, well nourished and + acute distress (Not in distress) Genitourinary: Right lower Mons pubis and upper L. Majora edema, redness, induration, slightly larger yesterday, about 6x4cm, no drainage Tenderrness+ Results & Data ([facility] [place]) Vital Signs (Past 12 Hours) Vital Signs Temp Pulse Pulse Resp BP BP Pulse Ox 05/13/20 14:25 91 H 20 162/80 H 95 05/13/20 13:30 36.7 C 87 20 127/79 96
[2020-05-13] MEDS ORDERED: DEXTROSE 5% IV SCH (17:00)
[2020-05-13] MEDS ORDERED: cefTRIAXone SODIUM 2,000 MG/70 ML BAG IV ONE ×2 (17:15→19:45)
[2020-05-13] MEDS ORDERED: metroNIDAZOLE 500 MG/100 ML BAG IV ONE (17:15)
[2020-05-13] MEDS ORDERED: ALBUT/IPRATROP 3MG/0.5MG NEB 3 ML VIAL INH PRN (18:09)
[2020-05-13] MEDS ORDERED: FAMOTIDINE 20 MG TAB PO PRN (18:09)
[2020-05-13] MEDS ORDERED: ALBUTEROL HFA 8 GM INHALER INH PRN (18:09)
[2020-05-13] MEDS ORDERED: guaiFENesin 600 MG TABCR PO PRN (18:09)
[2020-05-13] MEDS: ACETAMINOPHEN 325 MG TAB PO PRN (18:25)
[2020-05-13] MEDS: FLUTICASONE PROPIONATE NA SPR 16 GM BTL SCH (20:19)
[2020-05-13] MEDS: FLUTICASONE FUROATE 100MCG 14 PUFFS/INHALER INH SCH (20:19)
[2020-05-13] MEDS: CETIRIZINE HCL 10 MG TABLET PO SCH (20:20)
[2020-05-13] MEDS: DICLOFENAC SODIUM 75 MG TABCR PO SCH (20:20)
[2020-05-14] MEDS: ACETAMINOPHEN 325 MG TAB PO PRN ×3 (03:23→23:09)
[2020-05-14] MEDS: metroNIDAZOLE 500 MG/100 ML BAG IV SCH ×3 (06:03→21:00)
[2020-05-14] MEDS: IBUPROFEN 600 MG TAB PO PRN ×2 (06:34→19:32)
[2020-05-14] MEDS: LACTATED RINGER'S 1,000 ML IV SCH ×2 (06:35→17:34)
[2020-05-14 06:40] LABS: Basophils # (auto) 0.01 K/uL (0-0.2); Basophils % (auto) 0.1 %; Eosinophils # (auto) 0.13 K/uL (0-0.5); Eosinophils % (auto) 0.8 %; Hematocrit (blood only) 34.1 % (37-47); Hemoglobin 11.7 g/dL (12.0-16.0); Immature Granulocytes # (auto) 0.08 K/uL (0.00-0.02); Immature Granulocytes % (auto) 0.5 %; Lymphocytes # (auto) 1.02 K/uL (1.2-3.4); Lymphocytes % (auto) 6.6 %; Mean Corpuscular Hemoglobin 30.3 pg (25-34); Mean Corpuscular Hgb Conc 34.3 g/dL (32-36); Mean Corpuscular Volume 88.3 fL (80-100); Mean Platelet Volume 10.1 fL (7.4-10.4); Monocytes # (auto) 1.23 K/uL (0.11-0.59); Monocytes % (auto) 7.9 %; Neutrophils # (auto) 13.09 K/uL (1.4-6.5); Neutrophils % (auto) 84.1 %; Platelet Count 170 K/uL (130-400); RDW Coefficient of Variation 12.9 % (11.5-14.5); RDW Standard Deviation 41.8 fL (36.4-46.3); Red Blood Count 3.86 M/uL (4.2-5.4); White Blood Count 15.56 K/uL (4.8-10.8)
[2020-05-14] MEDS: UMECLIDINIUM BROMIDE 62.5MCG/BLISTER 7 PUFFS/INHALER INH SCH (08:19)
[2020-05-14] MEDS: FLUTICASONE/VILANTEROL 200/25MCG 14 PUFFS/INHALER INH SCH (08:20)
[2020-05-14] MEDS: FLUTICASONE PROPIONATE NA SPR 16 GM BTL SCH ×2 (08:21→20:58)
[2020-05-14] MEDS: DICLOFENAC SODIUM 75 MG TABCR PO SCH ×2 (08:22→16:54)
[2020-05-14] MEDS: ESCITALOPRAM OXALATE 10 MG TAB PO SCH (08:23)
[2020-05-14] MEDS: MONTELUKAST SODIUM 10 MG TABLET PO SCH (08:24)
[2020-05-14] MEDS: ATORVASTATIN 40 MG TAB PO SCH (08:24)
[2020-05-14] MEDS: PANTOprazole 40 MG TAB PO SCH (08:24)
[2020-05-14] MEDS: MIRABEGRON ER 25 MG TAB PO SCH (08:24)
[2020-05-14] MEDS ORDERED: cefTRIAXone SODIUM 2,000 MG in DEXTROSE 5% 50 ML IV SCH (17:00)
[2020-05-14] MEDS ORDERED: cefTRIAXone SODIUM 2,000 MG/70 ML BAG IV SCH (19:00)
[2020-05-14] MEDS: CETIRIZINE HCL 10 MG TABLET PO SCH (20:58)
[2020-05-14] MEDS: FLUTICASONE FUROATE 100MCG 14 PUFFS/INHALER INH SCH (20:59)
[2020-05-15] MEDS: LACTATED RINGER'S 1,000 ML IV SCH ×2 (01:56→11:00)
[2020-05-15] MEDS: IBUPROFEN 600 MG TAB PO PRN (01:59)
[2020-05-15] MEDS: metroNIDAZOLE 500 MG/100 ML BAG IV SCH (06:18)
[2020-05-15] MEDS: ATORVASTATIN 40 MG TAB PO SCH (08:14)
[2020-05-15] MEDS: DICLOFENAC SODIUM 75 MG TABCR PO SCH ×2 (08:14→17:44)
[2020-05-15] MEDS: PANTOprazole 40 MG TAB PO SCH (08:15)
[2020-05-15] MEDS: MIRABEGRON ER 25 MG TAB PO SCH (08:15)
[2020-05-15] MEDS: MONTELUKAST SODIUM 10 MG TABLET PO SCH (08:15)
[2020-05-15] MEDS: ESCITALOPRAM OXALATE 10 MG TAB PO SCH (08:15)
[2020-05-15] MEDS: FLUTICASONE/VILANTEROL 200/25MCG 14 PUFFS/INHALER INH SCH (08:15)
[2020-05-15] MEDS: FLUTICASONE PROPIONATE NA SPR 16 GM BTL SCH ×2 (08:16→21:03)
[2020-05-15] MEDS: UMECLIDINIUM BROMIDE 62.5MCG/BLISTER 7 PUFFS/INHALER INH SCH (08:16)
[2020-05-15 11:51] LABS: Basophils # (auto) 0.01 K/uL (0-0.2); Basophils % (auto) 0.1 %; Eosinophils # (auto) 0.39 K/uL (0-0.5); Eosinophils % (auto) 2.7 %; Hemoglobin 10.8 g/dL (12.0-16.0); Immature Granulocytes # (auto) 0.05 K/uL (0.00-0.02); Immature Granulocytes % (auto) 0.3 %; Lymphocytes # (auto) 1.22 K/uL (1.2-3.4); Lymphocytes % (auto) 8.4 %; Mean Corpuscular Hemoglobin 30.4 pg (25-34); Mean Corpuscular Hgb Conc 34.8 g/dL (32-36); Mean Corpuscular Volume 87.3 fL (80-100); Mean Platelet Volume 10.3 fL (7.4-10.4); Monocytes # (auto) 0.86 K/uL (0.11-0.59); Monocytes % (auto) 5.9 %; Neutrophils # (auto) 11.95 K/uL (1.4-6.5); Neutrophils % (auto) 82.6 %; Platelet Count 192 K/uL (130-400); RDW Standard Deviation 42.3 fL (36.4-46.3); Red Blood Count 3.55 M/uL (4.2-5.4); White Blood Count 14.48 K/uL (4.8-10.8)
--- NOTE | 2020-05-15 11:56 | Gynecologic Progress Note ---
Date of Service May 15, 2020 Assessment & Plan Admission and Anticipated Discharge Date Admission Date: May 13, 2020 Subjective Pt doing well s/p Rt vulva cellulitis area is erythematous erythema does not extend past marked area hard to touch,non weepy pt omn Iv antibx afebrile over 24 hrs Blood clx; negative since admission plan continue IV antibx will consider disch if pt. continues to be afebrile Results & Data ([facility]) Vital Signs (Past 12 Hours) Vital Signs Temp Pulse Resp BP Pulse Ox 05/15/20 11:00 36.7 C 83 18 120/75 93 05/15/20 07:45 36.6 C 78 20 128/82 93
--- NOTE | 2020-05-15 12:30 | Gynecologic Progress Note ---
Date of Service May 15, 2020 Assessment & Plan Admission and Anticipated Discharge Date Admission Date: May 13, 2020 Subjective Culdx done from office 05/12/20 show sensitivity to Bactrim Results & Data ([facility]) Vital Signs (Past 12 Hours) Vital Signs Temp Pulse Resp BP Pulse Ox 05/15/20 11:00 36.7 C 83 18 120/75 93 05/15/20 07:45 36.6 C 78 20 128/82 93
--- NOTE | 2020-05-15 13:03 | Gynecologic Progress Note ---
Date of Service May 15, 2020 Assessment & Plan Admission and Anticipated Discharge Date Admission Date: May 13, 2020 Subjective [employer]GER [employer]ICE IV flagyl and Rocephin is d/little after review of culx done in office on 05/12/20 Isolation for MRSA implemented Pt started on PO Flagyl + Bactrim will d/ch on above Meds x 14 days if afebrile tomorrow AM Results & Data ([facility]) Vital Signs (Past 12 Hours) Vital Signs Temp Pulse Resp BP Pulse Ox 05/15/20 11:00 36.7 C 83 18 120/75 93 05/15/20 07:45 36.6 C 78 20 128/82 93
[2020-05-15] MEDS: SULFAMETHOXAZOLE/TRIMETHOPRIM DS 800/160MG TAB PO SCH ×2 (13:39→23:36)
[2020-05-15] MEDS: metroNIDAZOLE 500 MG TAB PO SCH (17:43)
[2020-05-15] MEDS: ACETAMINOPHEN 325 MG TAB PO PRN (19:24)
[2020-05-15] MEDS: FLUTICASONE FUROATE 100MCG 14 PUFFS/INHALER INH SCH (21:04)
[2020-05-15] MEDS: CETIRIZINE HCL 10 MG TABLET PO SCH (21:05)
[2020-05-16] MEDS: ACETAMINOPHEN 325 MG TAB PO PRN (04:48)
[2020-05-16] MEDS: metroNIDAZOLE 500 MG TAB PO SCH ×2 (05:33→17:33)
[2020-05-16 05:40] LABS: Basophils # (auto) 0.02 K/uL (0-0.2); Basophils % (auto) 0.2 %; Eosinophils # (auto) 0.46 K/uL (0-0.5); Eosinophils % (auto) 3.9 %; Hematocrit (blood only) 31.3 % (37-47); Hemoglobin 10.6 g/dL (12.0-16.0); Immature Granulocytes # (auto) 0.04 K/uL (0.00-0.02); Immature Granulocytes % (auto) 0.3 %; Lymphocytes # (auto) 1.57 K/uL (1.2-3.4); Lymphocytes % (auto) 13.3 %; Mean Corpuscular Hemoglobin 29.8 pg (25-34); Mean Corpuscular Hgb Conc 33.9 g/dL (32-36); Mean Corpuscular Volume 87.9 fL (80-100); Mean Platelet Volume 9.6 fL (7.4-10.4); Monocytes # (auto) 0.48 K/uL (0.11-0.59); Monocytes % (auto) 4.1 %; Neutrophils # (auto) 9.22 K/uL (1.4-6.5); Neutrophils % (auto) 78.2 %; Platelet Count 238 K/uL (130-400); RDW Coefficient of Variation 13.1 % (11.5-14.5); RDW Standard Deviation 42.5 fL (36.4-46.3); Red Blood Count 3.56 M/uL (4.2-5.4); White Blood Count 11.79 K/uL (4.8-10.8)
[2020-05-16] MEDS: FLUTICASONE/VILANTEROL 200/25MCG 14 PUFFS/INHALER INH SCH (07:48)
[2020-05-16] MEDS: UMECLIDINIUM BROMIDE 62.5MCG/BLISTER 7 PUFFS/INHALER INH SCH (07:49)
[2020-05-16] MEDS: DICLOFENAC SODIUM 75 MG TABCR PO SCH ×2 (07:49→17:32)
[2020-05-16] MEDS: MIRABEGRON ER 25 MG TAB PO SCH (07:49)
[2020-05-16] MEDS: ATORVASTATIN 40 MG TAB PO SCH (07:50)
[2020-05-16] MEDS: ESCITALOPRAM OXALATE 10 MG TAB PO SCH (07:50)
[2020-05-16] MEDS: MONTELUKAST SODIUM 10 MG TABLET PO SCH (07:50)
[2020-05-16] MEDS: PANTOprazole 40 MG TAB PO SCH (07:50)
[2020-05-16] MEDS: SULFAMETHOXAZOLE/TRIMETHOPRIM DS 800/160MG TAB PO SCH (07:50)
[2020-05-16] MEDS: FLUTICASONE PROPIONATE NA SPR 16 GM BTL SCH ×2 (07:51→20:23)
[2020-05-16] MEDS ORDERED: VANCOMYCIN CONSULT ACTIVE PRN (08:12)
--- NOTE | 2020-05-16 08:33 | Obstetrical Progress Note ---
Date of Service May 16, 2020 Assessment & Plan Admission and Anticipated Discharge Date Admission Date: May 13, 2020 Subjective Patient is seen and examined She feels better No fever/ chills/ N&V Able to take oral AB'S Vital Signs Temp Pulse Resp BP Pulse Ox 05/16/20 04:30 36.6 C 87 17 128/78 92 05/15/20 23:30 36.8 C 87 17 129/78 93 05/15/20 19:15 36.9 C 85 18 138/78 90 05/15/20 16:05 37.3 C 82 18 144/76 H 91 05/15/20 11:00 36.7 C 83 18 120/75 93 Lab Results 05/13/20 05/13/20 05/13/20 Range/Units 14:30 14:33 14:33 WBC 16.91 H (4.8-10.8) K/uL RBC 4.60 (4.2-5.4) M/uL Hgb 14.1 (12.0-16.0) g/dL Hct 40.3 (37-47) % MCV 87.6 (80-100) fL MCH 30.7 (25-34) pg MCHC 35.0 (32-36) g/dL RDW Std Deviation 40.6 (36.4-46.3) fL RDW Coeff of Raheem 12.6 (11.5-14.5) % Plt Count 187 (130-400) K/uL MPV 10.9 H (7.4-10.4) fL Immature Gran % (Auto) 0.2 % Neut % (Auto) 81.6 % Lymph % (Auto) 10.8 % [place] % (Auto) 7.0 % Eos % (Auto) 0.3 % Baso % (Auto) 0.1 % Neut # (Auto) 13.81 H (1.4-6.5) K/uL Lymph # (Auto) 1.82 (1.2-3.4) K/uL [place] # (Auto) 1.18 H (0.11-0.59) K/uL Eos # (Auto) 0.05 (0-0.5) K/uL Baso # (Auto) 0.01 (0-0.2) K/uL Immature Gran # (Auto) 0.04 H (0.00-0.02) K/uL PT (9.0-12.0) Seconds INR (0.9-1.1) Sodium (136-145) mmol/L Potassium (3.5-5.1) mmol/L Chloride (98-107) mmol/L Carbon Dioxide (21-32) mmol/L Anion Gap (3-11) BUN (7-18) mg/dl Creatinine (0.6-1.2) mg/dl Est Cr Clr Drug Dosing Est GFR ( Amer) Est GFR (Non-Af Amer) BUN/Creatinine Ratio (10-20) Glucose (70-99) mg/dl Lactate 1.1 (0.4-2.0) mmol/L Calcium (8.5-10.1) mg/dl Total Bilirubin (0.2-1) mg/dl AST (15-37) U/L ALT (12-78) U/L Alkaline Phosphatase (45-117) U/L Total Protein (6.4-8.2) gm/dl Albumin (3.4-5.0) gm/dl Globulin (2.5-4.0) gm/dl Albumin/Globulin Ratio (0.9-2) Urine Color Dark Yellow Urine Appearance Clear (Clear) Urine pH 5.5 (4.5-7.5) Ur Specific [place] 1.022 (1.000-1.030) Urine Protein Negative (Negative) Urine Glucose (UA) Negative (Negative) Urine Ketones Negative (Negative) Urine Blood Negative (Negative) Urine Nitrite Negative (Negative) Urine Bilirubin Negative (Negative) Urine Urobilinogen Negative (Negative) Ur Leukocyte Esterase Trace H (Negative) Urine WBC (Auto) 1-5 (0-5) /hpf Urine RBC (Auto) 0-4 (0-4) /hpf U Hyaline Cast (Auto) 1-5 (0-5) /lpf U Epithel Cells (Auto) >30 H (0-5) /lpf Urine Bacteria (Auto) Negative (Negative) 05/13/20 05/13/20 05/14/20 Range/Units 14:33 14:33 06:25 WBC 15.56 H (4.8-10.8) K/uL RBC 3.86 L (4.2-5.4) M/uL Hgb 11.7 L (12.0-16.0) g/dL Hct 34.1 L (37-47) % MCV 88.3 (80-100) fL MCH 30.3 (25-34) pg MCHC 34.3 (32-36) g/dL RDW Std Deviation 41.8 (36.4-46.3) fL RDW Coeff of Raheem 12.9 (11.5-14.5) % Plt Count 170 (130-400) K/uL MPV 10.1 (7.4-10.4) fL Immature Gran % (Auto) 0.5 % Neut % (Auto) 84.1 % Lymph % (Auto) 6.6 % [place] % (Auto) 7.9 % Eos % (Auto) 0.8 % Baso % (Auto) 0.1 % Neut # (Auto) 13.09 H (1.4-6.5) K/uL Lymph # (Auto) 1.02 L (1.2-3.4) K/uL [place] # (Auto) 1.23 H (0.11-0.59) K/uL Eos # (Auto) 0.13 (0-0.5) K/uL Baso # (Auto) 0.01 (0-0.2) K/uL Immature Gran # (Auto) 0.08 H (0.00-0.02) K/uL PT 11.5 (9.0-12.0) Seconds INR 1.1 (0.9-1.1) Sodium 138 (136-145) mmol/L Potassium 3.3 L (3.5-5.1) mmol/L Chloride 103 (98-107) mmol/L Carbon Dioxide 27 (21-32) mmol/L Anion Gap 8.0 (3-11) BUN 17 (7-18) mg/dl Creatinine 1.09 (0.6-1.2) mg/dl Est Cr Clr Drug Dosing Not Reportable Est GFR ( Amer) 61.7 Est GFR (Non-Af Amer) 53.2 BUN/Creatinine Ratio 15.2 (10-20) Glucose 100 H (70-99) mg/dl Lactate (0.4-2.0) mmol/L Calcium 9.9 (8.5-10.1) mg/dl Total Bilirubin 1.7 H (0.2-1) mg/dl AST 9 L (15-37) U/L ALT 16 (12-78) U/L Alkaline Phosphatase 125 H (45-117) U/L Total Protein 7.7 (6.4-8.2) gm/dl Albumin 3.3 L (3.4-5.0) gm/dl Globulin 4.4 H (2.5-4.0) gm/dl Albumin/Globulin Ratio 0.7 L (0.9-2) Urine Color Urine Appearance (Clear) Urine pH (4.5-7.5) Ur Specific [place] (1.000-1.030) Urine Protein (Negative) Urine Glucose (UA) (Negative) Urine Ketones (Negative) Urine Blood (Negative) Urine Nitrite (Negative) Urine Bilirubin (Negative) Urine Urobilinogen (Negative) Ur Leukocyte Esterase (Negative) Urine WBC (Auto) (0-5) /hpf Urine RBC (Auto) (0-4) /hpf U Hyaline Cast (Auto) (0-5) /lpf U Epithel Cells (Auto) (0-5) /lpf Urine Bacteria (Auto) (Negative) 05/15/20 05/16/20 Range/Units 11:38 05:26 WBC 14.48 H 11.79 H (4.8-10.8) K/uL RBC 3.55 L 3.56 L (4.2-5.4) M/uL Hgb 10.8 L 10.6 L (12.0-16.0) g/dL Hct 31.0 L 31.3 L (37-47) % MCV 87.3 87.9 (80-100) fL MCH 30.4 29.8 (25-34) pg MCHC 34.8 33.9 (32-36) g/dL RDW Std Deviation 42.3 42.5 (36.4-46.3) fL RDW Coeff of Raheem 13.0 13.1 (11.5-14.5) % Plt Count 192 238 (130-400) K/uL MPV 10.3 9.6 (7.4-10.4) fL Immature Gran % (Auto) 0.3 0.3 % Neut % (Auto) 82.6 78.2 % Lymph % (Auto) 8.4 13.3 % [place] % (Auto) 5.9 4.1 % Eos % (Auto) 2.7 3.9 % Baso % (Auto) 0.1 0.2 % Neut # (Auto) 11.95 H 9.22 H (1.4-6.5) K/uL Lymph # (Auto) 1.22 1.57 (1.2-3.4) K/uL [place] # (Auto) 0.86 H 0.48 (0.11-0.59) K/uL Eos # (Auto) 0.39 0.46 (0-0.5) K/uL Baso # (Auto) 0.01 0.02 (0-0.2) K/uL Immature Gran # (Auto) 0.05 H 0.04 H (0.00-0.02) K/uL PT (9.0-12.0) Seconds INR (0.9-1.1) Sodium (136-145) mmol/L Potassium (3.5-5.1) mmol/L Chloride (98-107) mmol/L Carbon Dioxide (21-32) mmol/L Anion Gap (3-11) BUN (7-18) mg/dl Creatinine (0.6-1.2) mg/dl Est Cr Clr Drug Dosing Est GFR ( Amer) Est GFR (Non-Af Amer) BUN/Creatinine Ratio (10-20) Glucose (70-99) mg/dl Lactate (0.4-2.0) mmol/L Calcium (8.5-10.1) mg/dl Total Bilirubin (0.2-1) mg/dl AST (15-37) U/L ALT (12-78) U/L Alkaline Phosphatase (45-117) U/L Total Protein (6.4-8.2) gm/dl Albumin (3.4-5.0) gm/dl Globulin (2.5-4.0) gm/dl Albumin/Globulin Ratio (0.9-2) Urine Color Urine Appearance (Clear) Urine pH (4.5-7.5) Ur Specific [place] (1.000-1.030) Urine Protein (Negative) Urine Glucose (UA) (Negative) Urine Ketones (Negative) Urine Blood (Negative) Urine Nitrite (Negative) Urine Bilirubin (Negative) Urine Urobilinogen (Negative) Ur Leukocyte Esterase (Negative) Urine WBC (Auto) (0-5) /hpf Urine RBC (Auto) (0-4) /hpf U Hyaline Cast (Auto) (0-5) /lpf U Epithel Cells (Auto) (0-5) /lpf Urine Bacteria (Auto) (Negative) PE: She seems well, AND Moving in room comfortably Abd: soft, NT Vulva/ groin: red, more area of induration, no fluctuation Discussed with [place] from [facility], recommended IV Vancomycin and d/c home with PO AB when she improves Results & Data ([facility]) Vital Signs (Past 12 Hours) Vital Signs Temp Pulse Resp BP Pulse Ox 05/16/20 04:30 36.6 C 87 17 128/78 92 05/15/20 23:30 36.8 C 87 17 129/78 93
[2020-05-16] MEDS ORDERED: ONDANSETRON 4 MG OD TAB PO PRN (08:38)
[2020-05-16] MEDS ORDERED: VANCOMYCIN HCL 1,750 MG in SODIUM CHLORIDE 0.9% 500 ML IV ONE (08:45)
--- NOTE | 2020-05-16 09:10 | Pharmacy Report ---
Pharmacy Abx Initial Consult - Date of Service May 16, 2020 - Pharmacy Dosing Scope Date of Consult: 05/16 Consultation requested by: [facility] is consulted to initiate vancomycin IV dosing therapy, order appropriate labs and adjust drug dose/frequency. - Subjective The patient is a 64 year old F admitted on 05/13/20 16:31. - Objective Height: 5 ft 1 in Weight: 72.575 kg Vital Signs (Past 12hrs): Vital Signs Temp Pulse Resp BP Pulse Ox 05/16/20 07:20 36.7 C 83 18 114/78 94 05/16/20 04:30 36.6 C 87 17 128/78 92 05/15/20 23:30 36.8 C 87 17 129/78 93 Lab Results (24hrs): Laboratory Tests (24 Hours) 05/16/20 05/15/20 05:26 11:38 WBC 11.79 H 14.48 H Neut # (Auto) 9.22 H 11.95 H Micro Results: 05/15/20 17:13 Escherichia coli Shiga Toxins Test - Pending Stool Stool Culture - Pending - Risk Factors for Resistance * Antimicrobial use within the last 90 days [bactrim - filled 05/12] - Assessment & Plan Assessment 64 year old female currently on bactrim and flagyl for valvar cellulitis. Provider now starting vancomycin. Per MD notes, discussed case with ID from [facility] and recommending IV vancomycin and d/c home on PO antibiotics when she improves. Blood cultures preliminary no growth. Per provider, outpatient cultures done 05/12 had resulted in MRSA. Area worsening today, provider would like to continue with vanco/flagyl for now Plan Vancomycin IV * Had received one time dose of vancomycin in ED on 05/13 - no further doses since then. Anticipate patient cleared vancomycin, therefore will reload with 1750 mg (~24 mg/kg) x 1 for now * Patient candidate for vancomycin AUC nomogram dosing - will dose with vancomycin 1000 mg (~14 mg/kg/dose) IV q 12 hrs based upon nomogram to achieve estimated trough ~16 / AUC of 645 * AUC guided dosing is effective and associated with decreased risk of nephrotoxicity * Anticipate antibiotics 24-48 hrs, will consider ordering trough if continued further Pharmacy will continue to follow and will adjust dose/frequency as necessary. Thank you.
[2020-05-16 09:15] LABS: Creatinine Clr Calc Pharmacy 54.9 ml/min; Est GFR (African American) 74.7; Est GFR (Non-African American) 64.5
[2020-05-16] MEDS: CETIRIZINE HCL 10 MG TABLET PO SCH (20:21)
[2020-05-16] MEDS: FLUTICASONE FUROATE 100MCG 14 PUFFS/INHALER INH SCH (20:23)
[2020-05-16] MEDS: VANCOMYCIN HCL 1,000 MG in SODIUM CHLORIDE 0.9% 250 ML IV SCH (20:24)
[2020-05-16] MEDS ORDERED: VANCOMYCIN HCL 750 MG in SODIUM CHLORIDE 0.9% 250 ML IV SCH (21:00)
[2020-05-16] MEDS ORDERED: VANCOMYCIN HCL 1,500 MG in SODIUM CHLORIDE 0.9% 500 ML IV SCH (21:00)
--- NOTE | 2020-05-17 02:54 | Obstetrical Progress Note ---
Date of Service May 17, 2020 Assessment & Plan Admission and Anticipated Discharge Date Admission Date: May 13, 2020 Subjective Patient is seen and examined She was resting but awake She states she feels, n pain unless someone pushes on it It has been draining pus No fever/ chills/ N&V Loose stools+ but no diarrhea C diff culture: negative Vital Signs Temp Pulse Pulse Resp BP BP Pulse Ox 05/16/20 23:00 36.8 C 76 18 125/69 94 05/16/20 20:10 36.7 C 70 18 129/73 93 05/16/20 15:25 36.8 C 83 18 131/78 PE: Alert orientedx3, NAD, smiling Abd: soft, NT, Right groin/ vulva/ mons pubis and upper rt thigh red, indurated, about the same size like yesterday Draining pus from rigth upper L. Majora Patient is uncomfortable if drained manually AP: 64 yo with Rt sided groin/ vulva/ mons pubis and upper rt thigh cellulitis, MRSA+, on IV Vancomycin Draining today Plan to continue with IV AB Repeat CT today Recommended another 24 hours of IV AB Continue to monitor closely Results & Data ([facility]) Vital Signs (Past 12 Hours) Vital Signs Temp Pulse Pulse Resp BP BP Pulse Ox 05/16/20 23:00 36.8 C 76 18 125/69 94 05/16/20 20:10 36.7 C 70 18 129/73 93 05/16/20 15:25 36.8 C 83 18 131/78
[2020-05-17] MEDS: metroNIDAZOLE 500 MG TAB PO SCH ×2 (05:25→17:37)
[2020-05-17] MEDS: IBUPROFEN 600 MG TAB PO PRN (05:43)
[2020-05-17 05:51] LABS: Creatinine Clr Calc Pharmacy 68.1 ml/min; Est GFR (African American) 96.9; Est GFR (Non-African American) 83.6
[2020-05-17] MEDS: ESCITALOPRAM OXALATE 10 MG TAB PO SCH (08:25)
[2020-05-17] MEDS: DICLOFENAC SODIUM 75 MG TABCR PO SCH ×2 (08:25→17:37)
[2020-05-17] MEDS: FLUTICASONE/VILANTEROL 200/25MCG 14 PUFFS/INHALER INH SCH (08:25)
[2020-05-17] MEDS: FLUTICASONE PROPIONATE NA SPR 16 GM BTL SCH ×2 (08:26→21:04)
[2020-05-17] MEDS: UMECLIDINIUM BROMIDE 62.5MCG/BLISTER 7 PUFFS/INHALER INH SCH (08:26)
[2020-05-17] MEDS: MONTELUKAST SODIUM 10 MG TABLET PO SCH (08:27)
[2020-05-17] MEDS: ATORVASTATIN 40 MG TAB PO SCH (08:27)
[2020-05-17] MEDS: MIRABEGRON ER 25 MG TAB PO SCH (08:27)
[2020-05-17] MEDS: PANTOprazole 40 MG TAB PO SCH (08:27)
[2020-05-17] MEDS ORDERED: IOVERSOL 100ml IV ONE (09:00)
--- NOTE | 2020-05-17 09:28 | CT Scan Report ---
CT pelvis w/IV con only HISTORY: 64 years-old Female VULVAR / RT GROIN CELLULITIS patient presents with acute cellulitis of the right inguinal tissues. COMPARISON: CT abdomen and pelvis 05/13/2020, 11/05/2016 TECHNIQUE: Multiaxial CT images of the pelvis were obtained following the intravenous administration of 94 mL Optiray 320. A dose lowering technique was used consistent with the principals of ARIANNA. FINDINGS: Moderate mixed plaque of the abdominal aorta and proximal common iliac arteries. Unremarkable urinary bladder. Hysterectomy. No adnexal mass lesion. No bowel dilation or wall thickening. Terminal ileum is unremarkable. Normal appendix. No intrapelvic inflammation or free fluid. Moderate subcutaneous ed beti of the right anterior labia and right inguinal tissues has mildly worsened from comparison. Addit ionally, there is developing phlegmonous change within this distribution without loculated abscess. I nflammation extends into the anteromedial right upper thigh with associated skin thickening. No deep tissue air to suggest fasciitis. Mildly prominent right inguinal chain lymph nodes are likely reactiv e. Bones appear intact. There is no acute fracture. Moderate disc space narrowing at L5-S1. IMPRESSION: 1. Skin thickening with mildly worsened moderate subcutaneous edema of the right anterior labia and r ight inguinal tissues with developing phlegmon. Inflammation extends into the right upper thigh. No l oculated fluid collection to suggest abscess. No evidence of fasciitis. 2. Mildly prominent right inguinal chain lymph nodes are likely reactive. 3. No acute intrapelvic abnormality. ACT 112: Negative or not required by law. The above report was generated using voice recognition software. It may contain grammatical, syntax o r spelling errors. Electronically signed by: Ashish Gibbs M.D. 05/17/2020 9:26 AM
[2020-05-17] MEDS: VANCOMYCIN HCL 1,000 MG in SODIUM CHLORIDE 0.9% 250 ML IV SCH (09:31)
[2020-05-17] MEDS: SACCHAROMYCES BOULARDII 250 MG CAP PO SCH (11:50)
[2020-05-17] MEDS ORDERED: LINEZOLID CONSULT ACTIVE PRN (20:47)
[2020-05-17] MEDS: FLUTICASONE FUROATE 100MCG 14 PUFFS/INHALER INH SCH (21:04)
[2020-05-17] MEDS: CETIRIZINE HCL 10 MG TABLET PO SCH (21:06)
[2020-05-17] MEDS: LINEZOLID 600 MG TAB PO SCH (21:42)
[2020-05-18] MEDS: IBUPROFEN 600 MG TAB PO PRN (00:02)
[2020-05-18] MEDS: metroNIDAZOLE 500 MG TAB PO SCH ×2 (06:26→17:21)
[2020-05-18 06:28] LABS: Est GFR (African American) 101.9; Est GFR (Non-African American) 87.9
[2020-05-18] MEDS: FLUTICASONE PROPIONATE NA SPR 16 GM BTL SCH ×2 (07:54→21:01)
[2020-05-18] MEDS: UMECLIDINIUM BROMIDE 62.5MCG/BLISTER 7 PUFFS/INHALER INH SCH (07:55)
[2020-05-18] MEDS: FLUTICASONE/VILANTEROL 200/25MCG 14 PUFFS/INHALER INH SCH (07:55)
[2020-05-18] MEDS: LINEZOLID 600 MG TAB PO SCH ×2 (07:55→21:05)
[2020-05-18] MEDS: MONTELUKAST SODIUM 10 MG TABLET PO SCH (07:56)
[2020-05-18] MEDS: MIRABEGRON ER 25 MG TAB PO SCH (07:56)
[2020-05-18] MEDS: PANTOprazole 40 MG TAB PO SCH (07:56)
[2020-05-18] MEDS: SACCHAROMYCES BOULARDII 250 MG CAP PO SCH (07:56)
[2020-05-18] MEDS: ATORVASTATIN 40 MG TAB PO SCH (07:56)
[2020-05-18] MEDS: DICLOFENAC SODIUM 75 MG TABCR PO SCH ×2 (07:58→17:44)
[2020-05-18] MEDS ORDERED: VANCOMYCIN TROUGH ONE (08:30)
--- NOTE | 2020-05-18 18:32 | Obstetrical Progress Note ---
Date of Service May 18, 2020 Assessment & Plan Admission and Anticipated Discharge Date Admission Date: May 13, 2020 Physical Exam Physical Exam: afebrile on oral antibiotics decreased redness decreased pain Results & Data ([facility]) Vital Signs (Past 12 Hours) Vital Signs Temp Pulse Resp BP Pulse Ox 05/18/20 16:15 36.6 C 68 20 138/76 95 05/18/20 11:15 36.7 C 81 20 144/76 H 96 05/18/20 07:45 36.7 C 65 20 145/78 H 97
[2020-05-18] MEDS: FLUTICASONE FUROATE 100MCG 14 PUFFS/INHALER INH SCH (21:00)
[2020-05-18] MEDS: CETIRIZINE HCL 10 MG TABLET PO SCH (21:03)
[2020-05-19] MEDS: metroNIDAZOLE 500 MG TAB PO SCH ×2 (06:12→17:28)
[2020-05-19 06:44] LABS: Creatinine Clr Calc Pharmacy 67.2 ml/min; Est GFR (African American) 95.4; Est GFR (Non-African American) 82.3
[2020-05-19] MEDS: FLUTICASONE PROPIONATE NA SPR 16 GM BTL SCH ×2 (07:54→20:41)
[2020-05-19] MEDS: UMECLIDINIUM BROMIDE 62.5MCG/BLISTER 7 PUFFS/INHALER INH SCH (07:55)
[2020-05-19] MEDS: FLUTICASONE/VILANTEROL 200/25MCG 14 PUFFS/INHALER INH SCH (07:55)
[2020-05-19] MEDS: PANTOprazole 40 MG TAB PO SCH (07:55)
[2020-05-19] MEDS: SACCHAROMYCES BOULARDII 250 MG CAP PO SCH (07:55)
[2020-05-19] MEDS: LINEZOLID 600 MG TAB PO SCH ×2 (07:56→20:43)
[2020-05-19] MEDS: ATORVASTATIN 40 MG TAB PO SCH (07:56)
[2020-05-19] MEDS: DICLOFENAC SODIUM 75 MG TABCR PO SCH ×2 (07:56→17:29)
[2020-05-19] MEDS: MONTELUKAST SODIUM 10 MG TABLET PO SCH (07:56)
[2020-05-19] MEDS: MIRABEGRON ER 25 MG TAB PO SCH (07:56)
--- NOTE | 2020-05-19 09:46 | Obstetrical Progress Note ---
Date of Service May 19, 2020 Assessment & Plan Admission and Anticipated Discharge Date Admission Date: May 13, 2020 Subjective Patient is seen and examined She feels well, no complaints No pain/ fever/ chills/ N&V Diarrhea+, C diff was negative Wound care drained it this morning Not draining anymore Vital Signs Temp Pulse Resp BP Pulse Ox 05/19/20 07:50 36.3 C L 65 20 137/71 99 05/19/20 04:30 36.7 C 77 18 133/85 96 05/19/20 00:30 36.7 C 64 18 147/78 H 94 05/18/20 20:25 36.9 C 67 20 153/76 H 94 05/18/20 16:15 36.6 C 68 20 138/76 95 05/18/20 11:15 36.7 C 81 20 144/76 H 96 Lab Results 05/13/20 05/13/20 05/13/20 Range/Units 14:30 14:33 14:33 WBC 16.91 H (4.8-10.8) K/uL RBC 4.60 (4.2-5.4) M/uL Hgb 14.1 (12.0-16.0) g/dL Hct 40.3 (37-47) % MCV 87.6 (80-100) fL MCH 30.7 (25-34) pg MCHC 35.0 (32-36) g/dL RDW Std Deviation 40.6 (36.4-46.3) fL RDW Coeff of Raheem 12.6 (11.5-14.5) % Plt Count 187 (130-400) K/uL MPV 10.9 H (7.4-10.4) fL Immature Gran % (Auto) 0.2 % Neut % (Auto) 81.6 % Lymph % (Auto) 10.8 % [place] % (Auto) 7.0 % Eos % (Auto) 0.3 % Baso % (Auto) 0.1 % Neut # (Auto) 13.81 H (1.4-6.5) K/uL Lymph # (Auto) 1.82 (1.2-3.4) K/uL [place] # (Auto) 1.18 H (0.11-0.59) K/uL Eos # (Auto) 0.05 (0-0.5) K/uL Baso # (Auto) 0.01 (0-0.2) K/uL Immature Gran # (Auto) 0.04 H (0.00-0.02) K/uL PT (9.0-12.0) Seconds INR (0.9-1.1) Sodium (136-145) mmol/L Potassium (3.5-5.1) mmol/L Chloride (98-107) mmol/L Carbon Dioxide (21-32) mmol/L Anion Gap (3-11) BUN (7-18) mg/dl Creatinine (0.6-1.2) mg/dl Est Cr Clr Drug Dosing Est GFR ( Amer) Est GFR (Non-Af Amer) BUN/Creatinine Ratio (10-20) Glucose (70-99) mg/dl Lactate 1.1 (0.4-2.0) mmol/L Calcium (8.5-10.1) mg/dl Total Bilirubin (0.2-1) mg/dl AST (15-37) U/L ALT (12-78) U/L Alkaline Phosphatase (45-117) U/L Total Protein (6.4-8.2) gm/dl Albumin (3.4-5.0) gm/dl Globulin (2.5-4.0) gm/dl Albumin/Globulin Ratio (0.9-2) Urine Color Dark Yellow Urine Appearance Clear (Clear) Urine pH 5.5 (4.5-7.5) Ur Specific [place] 1.022 (1.000-1.030) Urine Protein Negative (Negative) Urine Glucose (UA) Negative (Negative) Urine Ketones Negative (Negative) Urine Blood Negative (Negative) Urine Nitrite Negative (Negative) Urine Bilirubin Negative (Negative) Urine Urobilinogen Negative (Negative) Ur Leukocyte Esterase Trace H (Negative) Urine WBC (Auto) 1-5 (0-5) /hpf Urine RBC (Auto) 0-4 (0-4) /hpf U Hyaline Cast (Auto) 1-5 (0-5) /lpf U Epithel Cells (Auto) >30 H (0-5) /lpf Urine Bacteria (Auto) Negative (Negative) Stl C. diff Tox B Gene (Neg) 05/13/20 05/13/20 05/14/20 Range/Units 14:33 14:33 06:25 WBC 15.56 H (4.8-10.8) K/uL RBC 3.86 L (4.2-5.4) M/uL Hgb 11.7 L (12.0-16.0) g/dL Hct 34.1 L (37-47) % MCV 88.3 (80-100) fL MCH 30.3 (25-34) pg MCHC 34.3 (32-36) g/dL RDW Std Deviation 41.8 (36.4-46.3) fL RDW Coeff of Raheem 12.9 (11.5-14.5) % Plt Count 170 (130-400) K/uL MPV 10.1 (7.4-10.4) fL Immature Gran % (Auto) 0.5 % Neut % (Auto) 84.1 % Lymph % (Auto) 6.6 % [place] % (Auto) 7.9 % Eos % (Auto) 0.8 % Baso % (Auto) 0.1 % Neut # (Auto) 13.09 H (1.4-6.5) K/uL Lymph # (Auto) 1.02 L (1.2-3.4) K/uL [place] # (Auto) 1.23 H (0.11-0.59) K/uL Eos # (Auto) 0.13 (0-0.5) K/uL Baso # (Auto) 0.01 (0-0.2) K/uL Immature Gran # (Auto) 0.08 H (0.00-0.02) K/uL PT 11.5 (9.0-12.0) Seconds INR 1.1 (0.9-1.1) Sodium 138 (136-145) mmol/L Potassium 3.3 L (3.5-5.1) mmol/L Chloride 103 (98-107) mmol/L Carbon Dioxide 27 (21-32) mmol/L Anion Gap 8.0 (3-11) BUN 17 (7-18) mg/dl Creatinine 1.09 (0.6-1.2) mg/dl Est Cr Clr Drug Dosing Not Reportable Est GFR ( Amer) 61.7 Est GFR (Non-Af Amer) 53.2 BUN/Creatinine Ratio 15.2 (10-20) Glucose 100 H (70-99) mg/dl Lactate (0.4-2.0) mmol/L Calcium 9.9 (8.5-10.1) mg/dl Total Bilirubin 1.7 H (0.2-1) mg/dl AST 9 L (15-37) U/L ALT 16 (12-78) U/L Alkaline Phosphatase 125 H (45-117) U/L Total Protein 7.7 (6.4-8.2) gm/dl Albumin 3.3 L (3.4-5.0) gm/dl Globulin 4.4 H (2.5-4.0) gm/dl Albumin/Globulin Ratio 0.7 L (0.9-2) Urine Color Urine Appearance (Clear) Urine pH (4.5-7.5) Ur Specific [place] (1.000-1.030) Urine Protein (Negative) Urine Glucose (UA) (Negative) Urine Ketones (Negative) Urine Blood (Negative) Urine Nitrite (Negative) Urine Bilirubin (Negative) Urine Urobilinogen (Negative) Ur Leukocyte Esterase (Negative) Urine WBC (Auto) (0-5) /hpf Urine RBC (Auto) (0-4) /hpf U Hyaline Cast (Auto) (0-5) /lpf U Epithel Cells (Auto) (0-5) /lpf Urine Bacteria (Auto) (Negative) Stl C. diff Tox B Gene (Neg) 05/15/20 05/16/20 05/16/20 Range/Units 11:38 05:26 08:40 WBC 14.48 H 11.79 H (4.8-10.8) K/uL RBC 3.55 L 3.56 L (4.2-5.4) M/uL Hgb 10.8 L 10.6 L (12.0-16.0) g/dL Hct 31.0 L 31.3 L (37-47) % MCV 87.3 87.9 (80-100) fL MCH 30.4 29.8 (25-34) pg MCHC 34.8 33.9 (32-36) g/dL RDW Std Deviation 42.3 42.5 (36.4-46.3) fL RDW Coeff of Raheem 13.0 13.1 (11.5-14.5) % Plt Count 192 238 (130-400) K/uL MPV 10.3 9.6 (7.4-10.4) fL Immature Gran % (Auto) 0.3 0.3 % Neut % (Auto) 82.6 78.2 % Lymph % (Auto) 8.4 13.3 % [place] % (Auto) 5.9 4.1 % Eos % (Auto) 2.7 3.9 % Baso % (Auto) 0.1 0.2 % Neut # (Auto) 11.95 H 9.22 H (1.4-6.5) K/uL Lymph # (Auto) 1.22 1.57 (1.2-3.4) K/uL [place] # (Auto) 0.86 H 0.48 (0.11-0.59) K/uL Eos # (Auto) 0.39 0.46 (0-0.5) K/uL Baso # (Auto) 0.01 0.02 (0-0.2) K/uL Immature Gran # (Auto) 0.05 H 0.04 H (0.00-0.02) K/uL PT (9.0-12.0) Seconds INR (0.9-1.1) Sodium (136-145) mmol/L Potassium (3.5-5.1) mmol/L Chloride (98-107) mmol/L Carbon Dioxide (21-32) mmol/L Anion Gap (3-11) BUN (7-18) mg/dl Creatinine 0.93 (0.6-1.2) mg/dl Est Cr Clr Drug Dosing 54.9 Est GFR ( Amer) 74.7 Est GFR (Non-Af Amer) 64.5 BUN/Creatinine Ratio (10-20) Glucose (70-99) mg/dl Lactate (0.4-2.0) mmol/L Calcium (8.5-10.1) mg/dl Total Bilirubin (0.2-1) mg/dl AST (15-37) U/L ALT (12-78) U/L Alkaline Phosphatase (45-117) U/L Total Protein (6.4-8.2) gm/dl Albumin (3.4-5.0) gm/dl Globulin (2.5-4.0) gm/dl Albumin/Globulin Ratio (0.9-2) Urine Color Urine Appearance (Clear) Urine pH (4.5-7.5) Ur Specific [place] (1.000-1.030) Urine Protein (Negative) Urine Glucose (UA) (Negative) Urine Ketones (Negative) Urine Blood (Negative) Urine Nitrite (Negative) Urine Bilirubin (Negative) Urine Urobilinogen (Negative) Ur Leukocyte Esterase (Negative) Urine WBC (Auto) (0-5) /hpf Urine RBC (Auto) (0-4) /hpf U Hyaline Cast (Auto) (0-5) /lpf U Epithel Cells (Auto) (0-5) /lpf Urine Bacteria (Auto) (Negative) Stl C. diff Tox B Gene (Neg) 05/16/20 05/17/20 05/18/20 Range/Units 14:15 05:24 05:32 WBC (4.8-10.8) K/uL RBC (4.2-5.4) M/uL Hgb (12.0-16.0) g/dL Hct (37-47) % MCV (80-100) fL MCH (25-34) pg MCHC (32-36) g/dL RDW Std Deviation (36.4-46.3) fL RDW Coeff of Raheem (11.5-14.5) % Plt Count (130-400) K/uL MPV (7.4-10.4) fL Immature Gran % (Auto) % Neut % (Auto) % Lymph % (Auto) % [place] % (Auto) % Eos % (Auto) % Baso % (Auto) % Neut # (Auto) (1.4-6.5) K/uL Lymph # (Auto) (1.2-3.4) K/uL [place] # (Auto) (0.11-0.59) K/uL Eos # (Auto) (0-0.5) K/uL Baso # (Auto) (0-0.2) K/uL Immature Gran # (Auto) (0.00-0.02) K/uL PT (9.0-12.0) Seconds INR (0.9-1.1) Sodium (136-145) mmol/L Potassium (3.5-5.1) mmol/L Chloride (98-107) mmol/L Carbon Dioxide (21-32) mmol/L Anion Gap (3-11) BUN (7-18) mg/dl Creatinine 0.75 0.72 (0.6-1.2) mg/dl Est Cr Clr Drug Dosing 68.1 71.0 Est GFR ( Amer) 96.9 101.9 Est GFR (Non-Af Amer) 83.6 87.9 BUN/Creatinine Ratio (10-20) Glucose (70-99) mg/dl Lactate (0.4-2.0) mmol/L Calcium (8.5-10.1) mg/dl Total Bilirubin (0.2-1) mg/dl AST (15-37) U/L ALT (12-78) U/L Alkaline Phosphatase (45-117) U/L Total Protein (6.4-8.2) gm/dl Albumin (3.4-5.0) gm/dl Globulin (2.5-4.0) gm/dl Albumin/Globulin Ratio (0.9-2) Urine Color Urine Appearance (Clear) Urine pH (4.5-7.5) Ur Specific [place] (1.000-1.030) Urine Protein (Negative) Urine Glucose (UA) (Negative) Urine Ketones (Negative) Urine Blood (Negative) Urine Nitrite (Negative) Urine Bilirubin (Negative) Urine Urobilinogen (Negative) Ur Leukocyte Esterase (Negative) Urine WBC (Auto) (0-5) /hpf Urine RBC (Auto) (0-4) /hpf U Hyaline Cast (Auto) (0-5) /lpf U Epithel Cells (Auto) (0-5) /lpf Urine Bacteria (Auto) (Negative) Stl C. diff Tox B Gene Negative Cdiff Gene (Neg) 05/19/20 Range/Units 05:48 WBC (4.8-10.8) K/uL RBC (4.2-5.4) M/uL Hgb (12.0-16.0) g/dL Hct (37-47) % MCV (80-100) fL MCH (25-34) pg MCHC (32-36) g/dL RDW Std Deviation (36.4-46.3) fL RDW Coeff of Raheem (11.5-14.5) % Plt Count (130-400) K/uL MPV (7.4-10.4) fL Immature Gran % (Auto) % Neut % (Auto) % Lymph % (Auto) % [place] % (Auto) % Eos % (Auto) % Baso % (Auto) % Neut # (Auto) (1.4-6.5) K/uL Lymph # (Auto) (1.2-3.4) K/uL [place] # (Auto) (0.11-0.59) K/uL Eos # (Auto) (0-0.5) K/uL Baso # (Auto) (0-0.2) K/uL Immature Gran # (Auto) (0.00-0.02) K/uL PT (9.0-12.0) Seconds INR (0.9-1.1) Sodium (136-145) mmol/L Potassium (3.5-5.1) mmol/L Chloride (98-107) mmol/L Carbon Dioxide (21-32) mmol/L Anion Gap (3-11) BUN (7-18) mg/dl Creatinine 0.76 (0.6-1.2) mg/dl Est Cr Clr Drug Dosing 67.2 Est GFR ( Amer) 95.4 Est GFR (Non-Af Amer) 82.3 BUN/Creatinine Ratio (10-20) Glucose (70-99) mg/dl Lactate (0.4-2.0) mmol/L Calcium (8.5-10.1) mg/dl Total Bilirubin (0.2-1) mg/dl AST (15-37) U/L ALT (12-78) U/L Alkaline Phosphatase (45-117) U/L Total Protein (6.4-8.2) gm/dl Albumin (3.4-5.0) gm/dl Globulin (2.5-4.0) gm/dl Albumin/Globulin Ratio (0.9-2) Urine Color Urine Appearance (Clear) Urine pH (4.5-7.5) Ur Specific [place] (1.000-1.030) Urine Protein (Negative) Urine Glucose (UA) (Negative) Urine Ketones (Negative) Urine Blood (Negative) Urine Nitrite (Negative) Urine Bilirubin (Negative) Urine Urobilinogen (Negative) Ur Leukocyte Esterase (Negative) Urine WBC (Auto) (0-5) /hpf Urine RBC (Auto) (0-4) /hpf U Hyaline Cast (Auto) (0-5) /lpf U Epithel Cells (Auto) (0-5) /lpf Urine Bacteria (Auto) (Negative) Stl C. diff Tox B Gene (Neg) PE: Alert orientedx3, NAD She is moving, walking in the room well Abd: soft, NT, ND Groin/ vulvar erythema much smaller and redness much better Small areas of induration in the middle of rt groin about 2x4 cm and L. majora where there is a puncture site but no drainage Patient was seen by ID and recommended PO Flagyl and Linezolid, warm compresses Continue to monitor closely CBC today Possible d/c tomorrow Results & Data ([facility]) Vital Signs (Past 12 Hours) Vital Signs Temp Pulse Resp BP Pulse Ox 05/19/20 07:50 36.3 C L 65 20 137/71 99 05/19/20 04:30 36.7 C 77 18 133/85 96 05/19/20 00:30 36.7 C 64 18 147/78 H 94
[2020-05-19 10:06] LABS: Basophils # (auto) 0.01 K/uL (0-0.2); Basophils % (auto) 0.1 %; Eosinophils # (auto) 0.38 K/uL (0-0.5); Eosinophils % (auto) 5.2 %; Hematocrit (blood only) 35.1 % (37-47); Hemoglobin 12.1 g/dL (12.0-16.0); Immature Granulocytes # (auto) 0.12 K/uL (0.00-0.02); Immature Granulocytes % (auto) 1.6 %; Lymphocytes # (auto) 2.17 K/uL (1.2-3.4); Lymphocytes % (auto) 29.6 %; Mean Corpuscular Hemoglobin 29.9 pg (25-34); Mean Corpuscular Hgb Conc 34.5 g/dL (32-36); Mean Corpuscular Volume 86.7 fL (80-100); Mean Platelet Volume 9.2 fL (7.4-10.4); Monocytes # (auto) 0.67 K/uL (0.11-0.59); Monocytes % (auto) 9.2 %; Neutrophils # (auto) 3.97 K/uL (1.4-6.5); Neutrophils % (auto) 54.3 %; Platelet Count 369 K/uL (130-400); RDW Coefficient of Variation 13.5 % (11.5-14.5); RDW Standard Deviation 43.3 fL (36.4-46.3); Red Blood Count 4.05 M/uL (4.2-5.4); White Blood Count 7.32 K/uL (4.8-10.8)
[2020-05-19] MEDS: CETIRIZINE HCL 10 MG TABLET PO SCH (20:42)
[2020-05-19] MEDS: FLUTICASONE FUROATE 100MCG 14 PUFFS/INHALER INH SCH (20:42)
[2020-05-20] MEDS: metroNIDAZOLE 500 MG TAB PO SCH (06:17)
[2020-05-20] MEDS: FLUTICASONE PROPIONATE NA SPR 16 GM BTL SCH (08:25)
[2020-05-20] MEDS: FLUTICASONE/VILANTEROL 200/25MCG 14 PUFFS/INHALER INH SCH (08:26)
[2020-05-20] MEDS: UMECLIDINIUM BROMIDE 62.5MCG/BLISTER 7 PUFFS/INHALER INH SCH (08:26)
[2020-05-20] MEDS: ATORVASTATIN 40 MG TAB PO SCH (08:27)
[2020-05-20] MEDS: SACCHAROMYCES BOULARDII 250 MG CAP PO SCH (08:27)
[2020-05-20] MEDS: DICLOFENAC SODIUM 75 MG TABCR PO SCH (08:27)
[2020-05-20] MEDS: MONTELUKAST SODIUM 10 MG TABLET PO SCH (08:27)
[2020-05-20] MEDS: LINEZOLID 600 MG TAB PO SCH (08:27)
[2020-05-20] MEDS: PANTOprazole 40 MG TAB PO SCH (08:27)
[2020-05-20] MEDS: MIRABEGRON ER 25 MG TAB PO SCH (08:27)
--- NOTE | 2020-05-20 09:16 | Obstetrical Progress Note ---
Date of Service May 20, 2020 Assessment & Plan Admission and Anticipated Discharge Date Admission Date: May 13, 2020 Subjective Patient is seen and examined She feels well, no complaints Desires d/c No pain/ fever/ chills/ N&V Diarrhea+, C diff was negative Wound care has been following and her nurse drained it this morning after probing with Q tip Not draining anymore I spoke with [place] [facility] and recommended d/c home if improvement Vital Signs Temp Pulse Pulse Resp BP Pulse Ox 05/20/20 04:40 36.7 C 70 18 150/79 H 93 05/20/20 00:30 36.7 C 65 18 145/79 H 94 05/19/20 19:38 36.6 C 62 18 154/74 H 97 05/19/20 15:10 36.6 C 65 18 122/80 97 05/19/20 11:10 36.7 C 62 20 157/80 H 95 05/19/20 Range/Units 05:51 WBC 7.32 (4.8-10.8) K/uL RBC 4.05 L (4.2-5.4) M/uL Hgb 12.1 (12.0-16.0) g/dL Hct 35.1 L (37-47) % MCV 86.7 (80-100) fL MCH 29.9 (25-34) pg MCHC 34.5 (32-36) g/dL RDW Std Deviation 43.3 (36.4-46.3) fL RDW Coeff of Raheem 13.5 (11.5-14.5) % Plt Count 369 (130-400) K/uL MPV 9.2 (7.4-10.4) fL Immature Gran % (Auto) 1.6 % Neut % (Auto) 54.3 % Lymph % (Auto) 29.6 % [place] % (Auto) 9.2 % Eos % (Auto) 5.2 % Baso % (Auto) 0.1 % Neut # (Auto) 3.97 (1.4-6.5) K/uL Lymph # (Auto) 2.17 (1.2-3.4) K/uL [place] # (Auto) 0.67 H (0.11-0.59) K/uL Eos # (Auto) 0.38 (0-0.5) K/uL Baso # (Auto) 0.01 (0-0.2) K/uL Immature Gran # (Auto) 0.12 H (0.00-0.02) K/uL PE: She is moving int he room and smiling Abd: soft, NT, ND Erythema and swelling much improved Small hole was rpbes wit sterile q tip and rained small amount of serosanguineous fluid Induration is still+ but much less than before Plan to d/c home with wound care f/u and f/u in office PO Linezolid and Flagyl All questions were answered She is very appreciative. Results & Data ([facility]) Vital Signs (Past 12 Hours) Vital Signs Temp Pulse Resp BP Pulse Ox 05/20/20 04:40 36.7 C 70 18 150/79 H 93 05/20/20 00:30 36.7 C 65 18 145/79 H 94
[2020-05-20 09:17] VITALS: TEMP 98.2; O2SAT 96
[2020-05-20 09:41] VITALS: BP 139/81; PULSE 64
--- NOTE | 2020-05-23 21:35 | Discharge Summary (DS) ---
DETAILS OF ADMISSION: The patient is a 64-year-old postmenopausal female who was seen by myself on 05/12 in the office for vulvar cellulitis. She was started on p.o. antibiotics, which she could not tolerate due to nausea and vomiting. She presented to ER on the with a larger area of cellulitis. She had a CT scan, which showed cellulitis, but no abscess and recommended to be admitted to start IV antibiotics. She was started on IV vancomycin, Rocephin and Flagyl. She has been afebrile during the admission and on hospital day #1, the patient was doing well, afebrile. Blood cultures were negative and the area was about the same. On hospital day #2, She was seen by Dr. Iniguez who received culture results from [facility] and it was MRSA positive, and she was started on p.o. Flagyl and Bactrim. On hospital day #3, 05/16 when I came, the patient was feeling about the same. She has been afebrile, but the area of redness was much larger compared to Saturday. There was induration, erythema and redness all over the right labia majora, mons pubis and extending into the groin and upper thigh, and I called infectious disease from [place] who recommended IV vancomycin, but to discontinue p.o. Bactrim. There was no fluctuation to drain. On hospital day #4, the patient was doing about the same. Infectious disease was consulted from [place] through telemedicine online. Per their recommendations, she was changed to linezolid 600 mg twice a day by mouth, warm compression to the area 3-4 times a day, recommended to treat until the erythema was clearly improved. Next day, the patient was doing better. Vital signs stable, afebrile. Erythema was decreased. On 05/19/2020, patient was seen by myself again. She was doing well, ambulating in the room, tolerating regular diet. Vital signs stable, afebrile. She had diarrhea, but C. diff culture was negative and wound care was consulted. They drained from the puncture, which was made before, and the erythema and induration was much smaller than before, and I spoke with the infectious disease again. They recommended p.o. Flagyl and linezolid and either discharge today or tomorrow. The patient desired to stay another day and on 05/20/2020, the patient was seen by myself again. She was doing better. She wanted to be discharged. Vital signs stable, afebrile, tolerating regular diet, erythema and redness were much improved, induration was much better and there was a small hole, which was draining a small amount of serosanguineous fluid. The patient was discharged on 05/20 with oral antibiotics and to be seen in 3 days in the office. All questions were answered and she was very appreciative.
== END 2020-05-20 12:20 | disposition home or self-care (01) | DRG 759 ==
LOC: ED 13:27 → 4N 16:31